=== PATIENT | male | born 1965 | race Caucasian/White ===

== ENCOUNTER 2016-09-12 17:16 | Inpatient (IN) | payer OTHER ==
[~2016-09-12] VITALS: Ht 162.6 cm; Wt 73.3 kg
[2016-09-12 18:05] LABS: MEAN CORPUSCULAR HEMOGLOBIN 29.4 pg (27.0-33.0); MEAN CORPUSCULAR HGB CONC 33.5 g/dl (32.0-36.5); MEAN CORPUSCULAR VOLUME 87.7 fl (80.0-96.0); RED CELL DISTRIBUTION WIDTH 12.6 % (11.5-14.5); WHITE BLOOD COUNT 6.8 K/mm3 (4.0-10.0)
[2016-09-12 18:17] LABS: CONTROL LINE INT CTR LINE PRESENT; METHADONE URINE NEGATIVE (NEGATIVE); TRICYCLIC ANTIDEPRESS URINE NEGATIVE (NEGATIVE)
[2016-09-12 18:30] LABS: ALBUMIN 4.3 GM/DL (3.2-5.2); ALBUMIN/GLOBULIN RATIO 1.26 (1.00-1.93); ALKALINE PHOSPHATASE 101 U/L (45-117); ALT/SGPT 31 U/L (12-78); ANION GAP 11 MEQ/L (8-16); AST/SGOT 22 U/L (15-37); BILIRUBIN,DIRECT < 0.1 MG/DL (0.0-0.2); BILIRUBIN,TOTAL 0.2 MG/DL (0.2-1.0); BLOOD UREA NITROGEN 14 MG/DL (7-18); CALCIUM LEVEL 8.6 MG/DL (8.5-10.1); CARBON DIOXIDE LEVEL 25 MEQ/L (21-32); CHLORIDE LEVEL 104 MEQ/L (98-107); CREATININE FOR GFR 0.87 MG/DL (0.70-1.30); GLOMERULAR FILTRATION RATE > 60.0 (>56); GLUCOSE, FASTING 118 MG/DL (70-105); POTASSIUM SERUM 3.9 MEQ/L (3.5-5.1); SODIUM LEVEL 140 MEQ/L (136-145); TOTAL PROTEIN 7.7 GM/DL (6.4-8.2)
[2016-09-12] MEDS ORDERED: metFORMIN (GLUCOPHAGE) 500 MG TAB As Ordered ONE (20:48)
[2016-09-12] MEDS ORDERED: GABAPENTIN 300 MG CAP As Ordered ONE (20:49)
[2016-09-13] MEDS ORDERED: NAPROXEN 250 MG TAB As Ordered ONE (08:58)
[2016-09-13] MEDS ORDERED: PANTOPRAZOLE 40MG TAB (PROTONIX) As Ordered ONE (08:58)
[2016-09-13] MEDS ORDERED: GABAPENTIN 300 MG CAP As Ordered ONE ×2 (08:59→16:10)
[2016-09-13] MEDS ORDERED: GLIMEPIRIDE 2 MG TAB PO ONE (09:30)
[2016-09-13] MEDS ORDERED: IRBESARTAN 150 MG TAB PO ONE (13:45)
[2016-09-13] MEDS ORDERED: hydroCHLOROthiazide 12.5 MG CAPSULE As Ordered ONE (13:58)
[2016-09-13] MEDS ORDERED: ATOR1TAB21 PO (14:16)
[2016-09-13] MEDS ORDERED: PANT40TA2 PO (14:16)
[2016-09-13] MEDS ORDERED: GLIM2TA PO (14:16)
[2016-09-13] MEDS ORDERED: METF-700 PO (14:16)
[2016-09-13] MEDS ORDERED: GABA300C3 PO (14:16)
[2016-09-13] MEDS ORDERED: NAPR1TAB86 PO (14:16)
[2016-09-13] MEDS ORDERED: IRBE150T14 PO (14:16)
[2016-09-13 16:30] VITALS: BP 137/87
--- NOTE | 2016-09-13 17:07 | EDDOCDS ---
Physician Documentation [facility] Name: Stan Zaldivar Age: 51 yrs Sex: Male : 1965 Arrival Date: 09/12/2016 Time: 17:16 Bed BHU3 Private MD: Disposition: 09/13 13:25 Critical Care: Critical care not applicable. pc Disposition: 09/13/16 13:28 Hospitalization ordered by Merly Vázquez for Inpatient Admission. Preliminary diagnosis are Alcohol abuse, Major depressive disorder, recurrent, moderate, Suicidal ideations, Essential (primary) hypertension. - Bed requested for Admit. - Status is Inpatient Admission. dpm - Condition is Stable. - Problem is new. - Symptoms are unchanged. Historical: - Allergies: No known drug Allergies; - Home Meds: 1. gabapentin 300 mg Oral cap 1 cap 3 times per day 2. metformin 500 mg ER 4 tabs daily in the evening with food Oral tab 1 tab 2 times per day 3. naproxen 500 mg oral tab 1 tab 2 times per day 4. pantoprazole 40 mg oral TbEC 1 tab once daily 5. glimepiride 2 mg Oral tab DAILY IN THE MORNING 6. atorvastatin 20 mg oral tab once daily 7. all meds verified with [facility] 09/13 0800 8. irbesartan-hydrochlorothiazide 150-12.5 mg oral tab once daily - PMHx: High Cholesterol; Hypertension; Diabetes - NIDDM: controlled; - PSHx: Hernia repair- Right inguinal; Knee surgery- Left; - Social history: Smoking status: Patient uses tobacco products, heavy tobacco smoker. Patient uses alcohol No barriers to communication noted, The patient speaks fluent Serbian, Speaks appropriately for age, Preferred Language: Serbian. - Family history: Not pertinent. - : The pt / caregiver states he / she is not on anticoagulants. Unable to Verify Home Med List with the patient / caregiver. - Exposure Risk Screening:: None identified. Vital Signs: 09/12 17:52 BP 112 / 63; Pulse 103; Resp 18; Temp 97.8; Pulse Ox 97% ; Pain 0/10; hs1 17:55 Weight 70.31 kg / 155.01 lbs; Height 5 ft. 3 in. (160.02 cm); hs1 21:35 BP 136 / 85; Pulse 97; Resp 18; Temp 97.8(T); Pulse Ox 98% on R/A; Pain 0/10; rw1 09/13 06:17 BP 139 / 78; Pulse 73; Resp 16; Temp 97.2(TE); Pulse Ox 98% on R/A; Pain 0/10; rw1 13:13 BP 171 / 103; Pulse 83; Resp 18; Temp 97.2(O); Pulse Ox 99% on R/A; dpm 13:34 BP 159 / 100; mk4 14:52 BP 159 / 106; Pulse 72; mk4 15:17 BP 156 / 101; Pulse 72; Resp 18; mk4 16:55 BP 137 / 87; Pulse 80; Resp 16; Temp 97.1(T); Pulse Ox 98% on R/A; dpm 09/12 17:55 Body Mass Index 27.46 (70.31 kg, 160.02 cm) hs1 MDM: 09/12 17:19 Consult PFS/PSA/Sales Training Manager ordered. sd1 17:19 Consult PFS/PSA/Sales Training Manager: Patient's case requires discussion with on-call sd1 Psychiatrist ordered. 17:19 PSA/PFS to call Nursing [employer] Engagement Planning Operator, to enter patient data on [place] Safe [place] if patient sd1 involuntarily admitted or transferred for SI or HI ordered. 17:19 Confirm accurate psychiatric medication list and times of last dosage ordered. sd1 17:19 Detain Pt Until Medically/PFS Cleared ordered. sd1 17:20 Acetaminophen Level Ordered. EDMS 17:20 Basic Metabolic Profile Ordered. EDMS 17:20 Complete Blood Count Ordered. EDMS 17:20 Drug Eval Toxicology ED Only Ordered. EDMS 17:20 Ethyl Alcohol (ethanol) Ordered. EDMS 17:20 Liver Profile Ordered. EDMS 17:20 Salicylate Level Ordered. EDMS 17:20 Thyroid Stimulating Hormone Ordered. EDMS 18:34 Acetaminophen Level Reviewed. sd1 18:34 Basic Metabolic Profile Reviewed. sd1 18:34 Ethyl Alcohol (ethanol) Reviewed. sd1 18:34 Salicylate Level Reviewed. sd1 18:34 Complete Blood Count Reviewed. sd1 18:34 Drug Eval Toxicology ED Only Reviewed. sd1 18:34 Liver Profile Reviewed. sd1 18:34 Thyroid Stimulating Hormone Reviewed. sd1 18:44 Financial registration complete. zo 18:45 [facility] Payment Agreement was scanned into [email or web address] and attached to record. zo 20:46 metFORMIN 500 mg PO once ordered. rw1 20:46 Gabapentin 300 mg PO once ordered. rw1 09/13 00:05 Consult PFS/PSA/Sales Training Manager complete. jmb 00:05 Consult PFS/PSA/Sales Training Manager: Patient's case requires discussion with on-call jmb Psychiatrist complete. 00:05 PSA/PFS to call Nursing [employer] Engagement Planning Operator, to enter patient data [place] Safe [place] if patient jmb involuntarily admitted or transferred for SI or HI complete. 05:48 CONSISTENT CARBS-PLASTIC JUAREZ+DIET ordered. EDMS 06:59 Awaiting: The patient is awaiting psychiatric admission or transfer. All labs and pc investigations have been reviewed. The vital signs have been reviewed. The patient remains medically cleared for disposition. 08:48 Gabapentin 300 mg PO once ordered. mk4 08:48 Naproxen 500 mg PO once; administer with food or milk ordered. mk4 08:48 Pantoprazole 40 mg PO once ordered. mk4 08:48 Glimepiride 2 mg PO once ordered. mk4 11:47 CONSISTENT CARBS-PLASTIC JUAREZ+DIET ordered. EDMS 13:05 Admit to [facility]: ordered. EDMS 13:06 E Legal paperwork was scanned into [email or web address] and attached to record. jfb 13:25 [place] Safe Act reporting: The patient poses a significant risk to self or others, and pc PSA/PFS has notified the Nursing [employer] Engagement Planning Operator and he/she will complete the required data processing systems project planner. The patient has been re-examined and re-evaluated. There is no appreciated change of the patient's symptoms at this time. Disposition: The historical points, examination findings, and any diagnostic results supporting the provided diagnosis, were discussed with the patient or legal guardian. The need for further work-up and/or treatment in the hospital was explained. 13:34 Irbesartan 150 mg PO once ordered. pc 13:34 Hydrochlorothiazide 12.5 mg PO once ordered. pc 15:57 CONSISTENT CARBS-PLASTIC JUAREZ+DIET ordered. EDMS 16:08 Gabapentin 300 mg PO once ordered. mk4 Administered Medications: 09/12 20:55 Drug: metFORMIN 500 mg [metformin 500 mg tablet (1 tabs)] Route: PO; rw09/13 00:27 Follow up: Response: No Adverse Reaction rw1 02/22 20:55 Drug: Gabapentin 300 mg [gabapentin 100 mg capsule (3 caps)] Route: PO; 09/13 00:27 Follow up: Response: No Adverse Reaction 1 09:07 Drug: Gabapentin 300 mg [gabapentin 100 mg capsule (3 caps)] Route: PO; 4 09:07 Drug: Naproxen 500 mg [naproxen 250 mg tablet (2 tabs)] Route: PO; 4 09:07 Drug: Pantoprazole 40 mg [pantoprazole 40 mg tablet,delayed release (1 tabs)] Route: PO;mk4 10:22 Drug: Glimepiride 2 mg [glimepiride 2 mg tablet (1 tabs)] Route: PO; mk4 13:55 Drug: Irbesartan 150 mg [irbesartan 150 mg tablet (1 tabs)] Route: PO; mk4 13:55 Drug: Hydrochlorothiazide 12.5 mg Route: PO; 4 16:19 Drug: Gabapentin 300 mg [gabapentin 100 mg capsule (3 caps)] Route: PO; 4 Signatures: Dispatcher [employer] EDRick Ruiz MD MD pc Delaney-Rowland, Sarah, MD MD sd1 Derick Baron,MECHANICAL TEST ENGINEER MECHANICAL TEST ENGINEER rw1 Anila Rubin Julie PSA PSA Svetlana Horton RN RN hs1 Bartolome Deleon dpm, Joshua, RN RN Milady Ricardo RN RN mk4 Nikole Bhatt MD MD The chart was reviewed and I authenticate all verbal orders and agree with the evaluation and treatment provided.Corrections: (The following items were deleted from the chart) 08:09/12 17:47 Home Meds: metformin 500 mg Oral tab 1 tab 2 times per day; [place] [id number] 09/13 08:09/12 17:47 Home Meds: glipizide Oral; [place] [id number] 09/13 08:09/12 17:47 Home Meds: naproxen 250 mg Oral tab 1 tab every 6 hours; [place] [id number] 09/13 08:09/12 17:47 Home Meds: simvastatin 10 mg Oral tab 1 tab once daily; [place] [id number] 09/13 08:09/12 17:47 Home Meds: pantoprazole 20 mg oral TbEC 1 tab once daily; hs1 mk4 Attachments: 18:45 [facility] Agreement [facility]
--- NOTE | 2016-09-13 17:07 | EDDOCDS ---
Nurse's Notes [facility] Name: Stan Zaldivar Age: 51 yrs Sex: Male : 1965 Arrival Date: 09/12/2016 Time: 17:16 Bed [facility] Private MD: Diagnosis: Alcohol abuse;Major depressive disorder, recurrent, moderate;Suicidal ideations;Essential (primary) hypertension Presentation: 09/12 17:40 Presenting complaint: police state that he pulled into work and was swerving vehicle hs1 and stumbling around parking lot. Arrested for DUI and stated to police that he was going to loose everything and that he was going to blow his brains out and that (pointing to officer) you are going to get the call tomorrow. Patient eluded that he was going to loose his sons and job and be on welfare. Pt very emotional. Mental Health Triage Level: Level 2: The patient was brought to the ED for evaluation because of a legal pickup order. Adult Sepsis Screening: The patient does not have new or worsening altered mentation. Patient's respiratory rate is less than 22. Systolic blood pressure is greater than 100. Patient has a qSOFA score of 0- Negative Sepsis Screen. Suicide/Homicide risk assessment- The patient admits to and/or has been reported to be having suicidal ideations. The patient reports that he/she has not been admitted to an inpatient mental health facility in the last 30 days. The patient reports that he/she has a recent or current history of substance abuse. The patient reports that he/she has no prior history of suicide attempt and/or organized plan. The patient reports that he/she has experienced a significant life altering event in the last 30 days. The patient reports that he/she has adequate social support. The patient reports he/she has no significant chronic medical condition(s). Status: Patient is not a emergency medical service manager or dependent. Transition of care: patient was not received from another setting of care. 17:40 Acuity: NATALIO Level 3 hs1 17:40 Method Of Arrival: Police Car hs1 Triage Assessment: 17:48 General: Appears in no apparent distress, Behavior is crying. Pain: Denies pain. HIV hs1 screening NA for this visit. Neurological: Level of Consciousness is awake, alert. Respiratory: Airway is patent Respiratory effort is even, unlabored, Respiratory pattern is regular, symmetrical. GI: No deficits noted. : Urine is clear. Musculoskeletal: No deficits noted. Historical: - Allergies: No known drug Allergies; - Home Meds: 1. gabapentin 300 mg Oral cap 1 cap 3 times per day 2. metformin 500 mg ER 4 tabs daily in the evening with food Oral tab 1 tab 2 times per day 3. naproxen 500 mg oral tab 1 tab 2 times per day 4. pantoprazole 40 mg oral TbEC 1 tab once daily 5. glimepiride 2 mg Oral tab DAILY IN THE MORNING 6. atorvastatin 20 mg oral tab once daily 7. all meds verified with [facility] 09/13 0800 8. irbesartan-hydrochlorothiazide 150-12.5 mg oral tab once daily - PMHx: High Cholesterol; Hypertension; Diabetes - NIDDM: controlled; - PSHx: Hernia repair- Right inguinal; Knee surgery- Left; - Social history: Smoking status: Patient uses tobacco products, heavy tobacco smoker. Patient uses alcohol No barriers to communication noted, The patient speaks fluent Algerian, Speaks appropriately for age, Preferred Language: Algerian. - Family history: Not pertinent. - : The pt / caregiver states he / she is not on anticoagulants. Unable to Verify Home Med List with the patient / caregiver. - Exposure Risk Screening:: None identified. Screenin/23 13:21 Screening information is obtained from the patient. Fall risk: No risks identified. mk4 Assistance ADL's: requires no assistance with activities of daily living. Abuse/DV Screen: The patient / caregiver reports he/she is: not in a situation that causes fear, pain or injury. Nutritional screening: No deficits noted. Advance Directives: Currently, there is no health care proxy. There is no active DNR order. There is no living will. There is no Power of Offal Baler. Advance directive information has not previously been placed in an [facility] medical record. home support is adequate. Assessment: 09/12 17:48 General: see triage assessment. rw1 19:30 General: Appears in no apparent distress, comfortable, Behavior is appropriate for age, rw1 cooperative, pleasant. Pain: Denies pain. Neurological: Level of Consciousness is awake, alert, obeys commands, Oriented to person, place, time. Respiratory: Airway is patent Respiratory effort is even, unlabored. Derm: Skin is pink, warm & dry. normal. 20:37 Reassessment: Patient appears in no apparent distress at this time. awake resting on rw1 stretcher, safety maintained will monitor.. 21:35 Reassessment: Patient appears in no apparent distress at this time. Patient denies pain rw1 at this time. awake resting on stretcher, safety maintained will monitor.. 22:30 General: Appears in no apparent distress, comfortable, Behavior is resting quietly on rw1 stretcher with eyes closed, safety maintained. Respiratory: Airway is patent Respiratory effort is even, unlabored. Derm: Skin is pink, warm & dry. normal. 23:34 Reassessment: Patient appears in no apparent distress at this time. awake resting on rw1 stretcher, safety maintained will monitor.. 09/13 00:26 Reassessment: Patient appears in no apparent distress at this time. awake resting on rw1 stretcher, safety maintained will monitor.. 01:25 General: Appears in no apparent distress, comfortable, Behavior is resting quietly on rw1 stretcher with eyes closed, safety maintained . Respiratory: Airway is patent Respiratory effort is even, unlabored. Derm: Skin is pink, warm & dry. normal. 02:32 Reassessment: Patient appears in no apparent distress at this time. resting quietly on rw1 stretcher with eyes closed, safety maintained will monitor.. 03:33 Reassessment: Patient appears in no apparent distress at this time. resting quietly on rw1 stretcher, safety maintained will monitor.. 04:34 General: Appears in no apparent distress, comfortable, Behavior is resting quietly on rw1 stretcher with eyes closed, safety maintained. Respiratory: Airway is patent Respiratory effort is even, unlabored. Derm: Skin is pink, warm & dry. normal. 05:30 Reassessment: Patient appears in no apparent distress at this time. continues resting rw1 quietly on stretcher, safety maintained will monitor.. 06:17 Reassessment: Patient appears in no apparent distress at this time. Patient denies pain rw1 at this time. resting quietly on stretcher with eyes closed, safety maintained . 07:30 General: Appears in no apparent distress, comfortable, Behavior is appropriate for age, js13 cooperative. Neurological: Level of Consciousness is awake, alert. Respiratory: Airway is patent Respiratory effort is even, unlabored. Derm: Skin is pink, warm & dry. 08:30 General: Appears in no apparent distress, comfortable, Behavior is cooperative. mk4 Neurological: Level of Consciousness is awake, alert, Oriented to person, place, time. 09:45 Reassessment: Patient denies pain at this time. Neurological: Level of Consciousness is mk4 awake, alert, Oriented to person, place, time. 10:45 General: Appears in no apparent distress, comfortable, Behavior is cooperative. mk4 Respiratory: No deficits noted. Airway is patent Respiratory effort is even, unlabored, Respiratory pattern is regular. 12:00 General: Appears in no apparent distress, comfortable, Behavior is cooperative. mk4 Respiratory: Airway is patent Respiratory effort is even, unlabored, Respiratory pattern is regular. 13:18 General: Appears in no apparent distress, comfortable, Behavior is cooperative. mk4 Neurological: Level of Consciousness is awake, alert, obeys commands, Oriented to person, place, time. 13:49 General: Appears distressed, pt anxious, B/P elevated and reported to Dr Ware. mk4 14:40 General: Appears in no apparent distress, comfortable, Behavior is cooperative, family mk4 visitors in room , pt pleasant , in good spirits. 15:50 General: Appears in no apparent distress, Behavior is cooperative. mk4 16:59 General: Appears in no apparent distress, comfortable, Behavior is appropriate for age, mk4 cooperative, pleasant, admission nurse in room with pt . Pain: Denies pain. Mental Health Eval: 09/12 23:49 Status: The patient is not a emergency medical service manager or dependent. [facility] Behavioral Health: The patient is not an established patient of [facility] Behavioral Health. Referral Information: Evaluation referral is generated by a police agency: [place] [employer], Officer Padmini. The patient was referred for evaluation because Suicidal Ideation/statement. Subjective: The patients chief complaint is Patient reports that he was brought in by police tonight because he reported to saying he wanting to kill himself. . Delusions are denied. Patient's mood is appropriate. Hallucinations are denied. Patient reports that he stated he wanted to kill himself after the police stopped him at work and gave him a DWI. Mental Health history: no relevant mental health problems or treatments. Mental Health Admissions: None. Current Outpatient Mental Health Services: None. Current living environment is The patient currently lives with his / her significant other, Mari Love. Patient presents to Emergency Department with the following symptoms within the past 2 weeks: alcohol abuse and patient reported suicidal ideation while under the influence of alcohol. Substance abuse: Patient uses beer, Patient reports drinking beer several times during the week without full disclosure of how much weekly. Last use was 6 hours ago. Patient does not have a history of DTs. Mental status exam: Patients appearance is appropriate, Patient's behavior is cooperative, Speech is normal. Affect is flat. Mood is appropriate. Hallucinations are denied. Appetite is normal. Memory is fair. Energy level is normal. Content of thought is normal. Thought process is intact. Cognitive level is oriented to person, place, time and situation Patient's insight is good. Judgement is fair. Rapport with interviewer is good. Suicidal Ideation is present with no specific plan. Homicidal ideation is denied. Disposition: Medically cleared for disposition by Nikole Bhatt MD Psychiatric Consult is performed by phone with Dr Merly Vázquez. [facility] Admission Criteria: The patient is experiencing suicidal ideation. Narrative: Spoke with Dr. Cevallos who feels that patient should be admitted for evaluation and further treatment. 09/13 07:21 Legal Status: Patient's legal status will be Emergency admission: 9.39. [place] Safe Act:. 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 11:06 Patient presents to Emergency Department with the following symptoms within the past 2 weeks: alcohol abuse, depressed mood, poor impulse control, suicidal ideation with no plan. [facility] Admission Criteria: The patient requires continuous observation and/or control to protect self, others or property. The patient's care requires a multi-modal treatment plan under close supervision and coordination due to the complexity and severity of the patient's symptoms. The patient requires administration and monitoring of psychoactive medications by skilled medical providers due to the side effects of the psychoactive medications or significant dosage adjustments. 14:44 Insurance Pre-Certification:. 14:52 Insurance Pre-Certification: approved by: approved for 4 days from 09/13-09/16 with ac concurrent review with [facility] Auth. # [place] [id number]. The phone # is [phone], ext. [phone]. Vital Signs: 09/12 17:52 BP 112 / 63; Pulse 103; Resp 18; Temp 97.8; Pulse Ox 97% ; Pain 0/10; hs1 17:55 Weight 70.31 kg; Height 5 ft. 3 in. (160.02 cm); hs1 21:35 BP 136 / 85; Pulse 97; Resp 18; Temp 97.8(T); Pulse Ox 98% on R/A; Pain 0/10; rw1 09/13 06:17 BP 139 / 78; Pulse 73; Resp 16; Temp 97.2(TE); Pulse Ox 98% on R/A; Pain 0/10; rw1 13:13 BP 171 / 103; Pulse 83; Resp 18; Temp 97.2(O); Pulse Ox 99% on R/A; dpm 13:34 BP 159 / 100; mk4 14:52 BP 159 / 106; Pulse 72; mk4 15:17 BP 156 / 101; Pulse 72; Resp 18; mk4 16:55 BP 137 / 87; Pulse 80; Resp 16; Temp 97.1(T); Pulse Ox 98% on R/A; dpm 09/12 17:55 Body Mass Index 27.46 (70.31 kg, 160.02 cm) hs1 Vitals: 09/12 17:49 Log In time N/A- police car arrival. hs1 ED Course: 17:18 Patient visited by Anila Rubin. zo 17:18 Heather Mon MD is Attending Physician. sd1 17:18 Patient moved to [facility] zo 17:18 Patient moved to [facility] zo 17:19 Patient visited by Heather Mon MD. sd1 17:35 Drug Eval Toxicology ED Only Sent. jc4 17:44 Triage Initiated hs1 17:45 Psych Safety Check: Location: Psych Room. Visual Assessment: Cooperative, Agitated. jrd 17:45 Property removed, inventory done, secured in belongings bag- placed in locked locker. jrd Placed in in ED safe. 17:48 Acetaminophen Level Sent. hs1 17:48 Basic Metabolic Profile Sent. hs1 17:48 Complete Blood Count Sent. hs1 17:48 Ethyl Alcohol (ethanol) Sent. hs1 17:48 Liver Profile Sent. hs1 17:48 Salicylate Level Sent. hs1 17:48 Thyroid Stimulating Hormone Sent. hs1 17:49 No IV's were initiated during this patient's visit. hs1 17:55 Patient visited by Svetlana Gant, RONALD. hs1 18:00 Psych Safety Check: Location: Psych Room. Visual Assessment: Cooperative, Agitated. jrd 18:15 Psych Safety Check: Location: Psych Room. Visual Assessment: Cooperative. jrd 18:23 Patient visited by Domenic Ramirez PCA. jrd 18:45 [facility] Payment Agreement was scanned into [employer] and attached to record. zo 18:59 Patient visited by Porfirio Bermudez. tr 19:03 Leann Yanez,RONALD is Primary Nurse. cf2 19:03 Patient visited by Leann Yanez,RONALD. cf2 19:14 Patient visited by Porfirio Bermudez. tr 19:30 Patient visited by Porfirio Bermudez. tr 19:42 Patient visited by Porfirio Bermudez. tr 20:02 Patient visited by Porfirio Bermudez. tr 20:15 Patient visited by Porfirio Bermudez. tr 20:29 Patient visited by Porfirio Bermudez. tr 20:54 Attending Physician role handed off by Heather Mon MD fg 20:54 Nikole Bhatt MD is Attending Physician. fg 20:57 Patient visited by Porfirio Bermudez. tr 21:08 Patient moved to OBSERVATION fg 21:16 Patient visited by Porfirio Bermudez. tr 21:44 Patient visited by Porfirio Bermudez. tr 22:18 Patient visited by Porfirio Bermudez. tr 22:31 Patient visited by Derick Baron LPN. rw1 22:33 Patient visited by Porfirio Bermudez. tr 22:45 Patient visited by Porfirio Bermudez. tr 23:18 Patient visited by Porfirio Bermudez. tr 23:29 Patient visited by Porfirio Bermudez. tr 23:42 Patient visited by Tim. Lara tr 09/13 00:05 Merly Vázquez is Hospitalizing Provider. fg 00:16 Patient visited by Porfirio Bermudez. tr 00:30 Patient visited by Tim. Lara tr 00:44 Patient visited by Porfirio Bermudez. tr 00:58 Patient visited by Porfirio Bermudez. tr 01:16 Patient visited by Porfirio Bermudez. tr 01:28 Patient visited by Bermudez, Porfirio. tr 01:47 Patient visited by [facility]. tr 02:01 Patient visited by [facility]. tr 02:16 Patient visited by [facility]. tr 02:49 Patient visited by [facility]. tr 03:05 Patient visited by [facility]. tr 03:19 Patient visited by [facility]. tr 03:57 Patient visited by [facility]. tr 03:59 Patient visited by [facility]. tr 04:19 Patient visited by [facility]. tr 05:00 Patient visited by [facility]. tr 05:20 Patient visited by [facility]. tr 05:31 Patient visited by [facility]. tr 05:59 Patient visited by [facility]. tr 06:15 Patient visited by [facility]. tr 06:29 Patient visited by [facility]. tr 06:43 Patient visited by [facility]. tr 06:57 Patient visited by [facility]. tr 06:59 Attending Physician role handed off by Nikole Bhatt MD pc 06:59 Rick Ware MD is Attending Physician. pc 07:24 Patient visited by Bartolome Deleon. dpm 07:37 Patient visited by Bartolome Deleon. dpm 07:45 Patient visited by Bartolome Deleon. dpm 08:01 Patient visited by Bartolome Deleon. dpm 08:21 Patient visited by Bartolome Deleon. dpm 08:40 Patient visited by Bartolome Deleon. dpm 08:56 Patient visited by Bartolome Deleon. dpm 09:13 Patient visited by Bartolome Deleon. dpm 09:32 Patient visited by Bartolome Deleon. dpm 09:51 Patient visited by Bartolome Deleon. dpm 10:00 Patient visited by Bartolome Deleon. dpm 10:15 Patient visited by Bartolome Deleon. dpm 10:32 Patient visited by Bartolome Deleon. dpm 11:03 Patient visited by Bartolome Deleon. dpm 11:26 Patient visited by Bartolome Deleon. dpm 11:51 Patient visited by Bartolome Deleon. dpm 12:33 Patient visited by Bartolome Deleon. dpm 12:50 Patient visited by Bartolome Deleon. dpm 13:06 E Legal paperwork was scanned into [employer] and attached to record. jfb 13:13 Patient visited by Bartolome Deleon. dpm 13:21 The patient / caregiver is instructed regarding the plan of care and ED course. mk4 13:21 No procedures done that require assistance. mk4 13:25 Patient moved to [facility] pc 13:28 Merly Vázquez is Hospitalizing Provider. pc 13:30 Patient visited by Bartolome Deleon. dpm 13:46 Patient visited by Bartolome Deleon. dpm 14:03 Patient visited by Bartolome Deleon. dpm 14:19 Patient visited by Bartolome Deleon. dpm 15:15 Patient visited by Bartolome Deleon. dpm 15:41 Patient visited by Bartolome Deleon. dpm 15:55 Patient visited by Bartolome Deleon. dpm 16:01 Patient visited by Bartolome Deleon. dpm 16:24 Patient visited by Bartolome Deleon. dpm 16:49 Patient visited by Bartolome Deleon. dpm Administered Medications: 09/12 20:55 Drug: metFORMIN 500 mg [metformin 500 mg tablet (1 tabs)] Route: PO; 09/13 00:27 Follow up: Response: No Adverse Reaction [facility] 09/12 20:55 Drug: Gabapentin 300 mg [gabapentin 100 mg capsule (3 caps)] Route: PO; 09/13 00:27 Follow up: Response: No Adverse Reaction rw1 09:07 Drug: Gabapentin 300 mg [gabapentin 100 mg capsule (3 caps)] Route: PO; mk4 09:07 Drug: Naproxen 500 mg [naproxen 250 mg tablet (2 tabs)] Route: PO; mk4 09:07 Drug: Pantoprazole 40 mg [pantoprazole 40 mg tablet,delayed release (1 tabs)] Route: PO;mk4 10:22 Drug: Glimepiride 2 mg [glimepiride 2 mg tablet (1 tabs)] Route: PO; mk4 13:55 Drug: Irbesartan 150 mg [irbesartan 150 mg tablet (1 tabs)] Route: PO; mk4 13:55 Drug: Hydrochlorothiazide 12.5 mg Route: PO; mk4 16:19 Drug: Gabapentin 300 mg [gabapentin 100 mg capsule (3 caps)] Route: PO; mk4 Attachments: 09/13 13:06 [facility] Legal paperwork jfb Order Results: Lab Order: Acetaminophen Level; SPEC'M 09/12/16 17:32 Test: ACETAMINOPHEN LEVEL; Value: < 2.0; Range: 10.0-30.0; Abnormal: Below low normal; Units: UG/ML; Status: F Lab Order: Basic Metabolic Profile; SPEC'M 09/12/16 17:32 Test: GLUCOSE, FASTING; Value: 118; Range: 70-105; Abnormal: Above high normal; Units: MG/DL; Status: F Test: BLOOD UREA NITROGEN; Value: 14; Range: 7-18; Units: MG/DL; Status: F Test: CREATININE FOR GFR; Value: 0.87; Range: 0.70-1.30; Units: MG/DL; Status: F Test: GLOMERULAR FILTRATION RATE; Value: > 60.0; Range: >56; Status: F Test: SODIUM LEVEL; Value: 140; Range: 136-145; Units: MEQ/L; Status: F Test: POTASSIUM SERUM; Value: 3.9; Range: 3.5-5.1; Units: MEQ/L; Status: F Test: CHLORIDE LEVEL; Value: 104; Range: 98-107; Units: MEQ/L; Status: F Test: CARBON DIOXIDE LEVEL; Value: 25; Range: 21-32; Units: MEQ/L; Status: F Test: ANION GAP; Value: 11; Range: 8-16; Units: MEQ/L; Status: F Test: CALCIUM LEVEL; Value: 8.6; Range: 8.5-10.1; Units: MG/DL; Status: F Test Note: ; Units are mL/min/1.73 m2 Chronic Kidney Disease Staging per NKF: Stage I & II GFR >=60 Normal to Mildly Decreased Stage III GFR 30-59 Moderately Decreased Stage IV GFR 15-29 Severely Decreased Stage V GFR <15 Very Little GFR Left ESRD GFR <15 on UTILITY ASSEMBLER Lab Order: Complete Blood Count; SPEC'M 09/12/16 17:32 Test: WHITE BLOOD COUNT; Value: 6.8; Range: 4.0-10.0; Units: K/mm3; Status: F Test: RED BLOOD COUNT; Value: 5.06; Range: 4.30-6.10; Units: M/mm3; Status: F Test: HEMOGLOBIN; Value: 14.9; Range: 14.0-18.0; Units: g/dl; Status: F Test: HEMATOCRIT; Value: 44.3; Range: 42.0-52.0; Units: %; Status: F Test: MEAN CORPUSCULAR VOLUME; Value: 87.7; Range: 80.0-96.0; Units: fl; Status: F Test: MEAN CORPUSCULAR HEMOGLOBIN; Value: 29.4; Range: 27.0-33.0; Units: pg; Status: F Test: MEAN CORPUSCULAR HGB CONC; Value: 33.5; Range: 32.0-36.5; Units: g/dl; Status: F Test: RED CELL DISTRIBUTION WIDTH; Value: 12.6; Range: 11.5-14.5; Units: %; Status: F Test: PLATELET COUNT, AUTOMATED; Value: 309; Range: 150-450; Units: k/mm3; Status: F Lab Order: Drug Eval Toxicology ED Only; SPEC'M 09/12/16 17:31 Test: AMPHETAMINES LEVEL URINE; Value: NEGATIVE; Range: NEGATIVE; Status: F Test: BARBITURATES URINE; Value: NEGATIVE; Range: NEGATIVE; Status: F Test: BENZODIAZEPINES URINE; Value: NEGATIVE; Range: NEGATIVE; Status: F Test: CANNABINOIDS URINE; Value: NEGATIVE; Range: NEGATIVE; Status: F Test: COCAINE METABOLITE URINE; Value: NEGATIVE; Range: NEGATIVE; Status: F Test: METHADONE URINE; Value: NEGATIVE; Range: NEGATIVE; Status: F Test: OPIATES URINE; Value: NEGATIVE; Range: NEGATIVE; Status: F Test: TRICYCLIC ANTIDEPRESS URINE; Value: NEGATIVE; Range: NEGATIVE; Status: F Test Note: ; ALL PRESUMPTIVE POSITIVE FINDINGS ARE UNCONFIRMED NORMAL VALUES THRESHOLD IN NG/ML AMPHETAMINES 1000 METHAMPHETAMINES 1000 BARBITURATES 300 BENZODIAZEPINES 300 CANNABINOIDS (THC) 50 COCAINE METABOLITE 300 METHADONE 300 OPIATES 300 PHENCYCLIDINE 25 TRICYCLIC ANTIDEPRESSANTS 1000 RESULTS ARE FOR MEDICAL PURPOSES ONLY. ALL URINE SPECIMENS WILL BE SAVED FOR 3 DAYS. IF CONFIRMATION OF A PRESUMPTIVE POSTIVE SCREEN RESULT IS DESIRED, CALL CHEMISTRY ([phone]) AND REQUEST URINE TO BE SENT TO REFERENCE LAB. FOR A LIST OF CLOSELY RELATED COMPOUNDS PLEASE CALL THE LAB. Lab Order: Ethyl Alcohol (ethanol); [facility] 09/12/16 17:32 Test: ETHYL ALCOHOL (ETHANOL); Value: 0.179; Range: 0.000-0.010; Abnormal: Above high normal; Units: %; Status: F Lab Order: Liver Profile; [facility] 09/12/16 17:32 Test: AST/SGOT; Value: 22; Range: 15-37; Units: U/L; Status: F Test: ALT/SGPT; Value: 31; Range: 12-78; Units: U/L; Status: F Test: ALKALINE PHOSPHATASE; Value: 101; Range: 45-117; Units: U/L; Status: F Test: BILIRUBIN,TOTAL; Value: 0.2; Range: 0.2-1.0; Units: MG/DL; Status: F Test: BILIRUBIN,DIRECT; Value: < 0.1; Range: 0.0-0.2; Units: MG/DL; Status: F Test: TOTAL PROTEIN; Value: 7.7; Range: 6.4-8.2; Units: GM/DL; Status: F Test: ALBUMIN; Value: 4.3; Range: 3.2-5.2; Units: GM/DL; Status: F Test: ALBUMIN/GLOBULIN RATIO; Value: 1.26; Range: 1.00-1.93; Status: F Lab Order: Salicylate Level; SPEC' 09/12/16 17:32 Test: SALICYLATE LEVEL; Value: < 1.7; Range: 5.0-30.0; Abnormal: Below low normal; Units: MG/DL; Status: F Lab Order: Thyroid Stimulating Hormone; SPEC'M 09/12/16 17:32 Test: THYROID STIMULATING HORMONE; Value: 1.390; Range: 0.358-3.740; Units: uIU/ML; Status: F Outcome: 00:05 Decision to Hospitalize by Provider. fg 13:21 Discharge Assessment: Patient awake, alert and oriented x 3. No cognitive and/or mk4 functional deficits noted. Patient verbalized understanding of disposition instructions. Patient awake and alert. patient administered narcotics - no. Admitted to Psych accompanied by tech, via wheelchair, with chart. The following High Risk Discharge criteria are identified: None. Condition: good Condition: stable. No special radiology studies were completed. Admission hand-off: Report Faxed Fax receipt verified by [facility]. 13:28 Decision to Hospitalize by Provider. 17:06 Patient left the ED. dpm Signatures: Rick Ware MD MD pc Delaney-Rowland, Sarah, MD MD sd1 Antonio Irving, PSA PSA miladis Bermudez, Derick Santo,AIR CONDITIONING COIL ASSEMBLER AIR CONDITIONING COIL ASSEMBLER rw1 Anila Rubin Julie, PSA PSA Svetlana Horton, RN RN hs1 Otilia Vásquez, RN RN jc4 Otilia Diego,RN RN js13 Bartolome Deleonm Flash Campos,RN RN Milady Ricardo, RN RN mk4 Domenic Ramirez, TIARRA ATHLETE MANAGER Nikole Stein MD MD fg Familetti-Gonzalez, Christina,RN RN cf2 Corrections: (The following items were deleted from the chart) 09/12 18: 18:22 Property removed, inventory done, secured in belongings bag- placed in locked jrd locker. Placed in in ED safe. jrd 09/13 08:30 09/12 17:47 Home Meds: metformin 500 mg Oral tab 1 tab 2 times per day; [place] [id number] 09/13 08:09/12 17:47 Home Meds: glipizide Oral; [place] [id number] 09/13 08:09/12 17:47 Home Meds: naproxen 250 mg Oral tab 1 tab every 6 hours; [place] [id number] 09/13 08:09/12 17:47 Home Meds: simvastatin 10 mg Oral tab 1 tab once daily; [place] [id number] 09/13 08:09/12 17:47 Home Meds: pantoprazole 20 mg oral TbEC 1 tab once daily; [facility]4 MTDD
[2016-09-13] MEDS ORDERED: ACETAMINOPHEN TAB 650MG DOSE (2X325MG) PO PRN (18:15)
[2016-09-13] MEDS ORDERED: NAPROXEN 250 MG TAB PO PRN (18:15)
[2016-09-13] MEDS ORDERED: LORazepam 2 MG TAB PO PRN (18:15)
[2016-09-13] MEDS ORDERED: traZODone 50 MG TAB PO PRN (18:15)
[2016-09-13] MEDS ORDERED: MOM 30ML SUSPENSION UDC PO PRN (18:15)
[2016-09-13] MEDS: GABAPENTIN 300 MG CAP PO SCH (20:01)
[2016-09-13] MEDS: THIAMINE 100 MG TAB PO SCH (20:01)
[2016-09-13] MEDS ORDERED: metFORMIN XR 500MG TAB *GLUCOPHAGE XR PO ONE (22:15)
[2016-09-14] MEDS: GLIMEPIRIDE 2 MG TAB PO SCH (06:33)
[2016-09-14 06:45] VITALS: BP 163/78
[2016-09-14] MEDS: FOLIC ACID 1 MG TAB PO SCH (08:30)
[2016-09-14] MEDS: PANTOPRAZOLE 40MG TAB (PROTONIX) PO SCH (08:30)
[2016-09-14] MEDS: GABAPENTIN 300 MG CAP PO SCH ×3 (08:30→21:19)
[2016-09-14] MEDS: MULTIVITAMINS/MINERALS THERAP 1 TAB PO SCH (08:30)
[2016-09-14] MEDS: IRBESARTAN 150 MG TAB PO SCH (08:31)
[2016-09-14] MEDS: hydroCHLOROthiazide 12.5 MG CAPSULE PO SCH (08:31)
[2016-09-14] MEDS: THIAMINE 100 MG TAB PO SCH ×2 (08:31→21:19)
[2016-09-14] MEDS: ATORVASTATIN 20 MG TAB PO SCH (08:32)
[2016-09-14 11:29] VITALS: BP 144/86
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
[2016-09-14 11:45] VITALS: BP 131/90
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
--- NOTE | 2016-09-14 17:06 | ECGEPIP ---
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 No prior ECG available for comparison at the time of interpretation. Electronically Signed On 09-14-2016 16:51:37 EST by Benson Salas
[2016-09-14] MEDS: metFORMIN XR 500MG TAB *GLUCOPHAGE XR PO SCH (17:27)
[2016-09-14 17:39] VITALS: BP 144/98
[2016-09-14 18:00] VITALS: BP 144/98
[2016-09-14] MEDS ORDERED: hydrOXYzine 50 MG TAB PO PRN (19:30)
[2016-09-15 06:36] VITALS: BP 120/78
[2016-09-15] MEDS: GLIMEPIRIDE 2 MG TAB PO SCH (06:45)
[2016-09-15] MEDS: buPROPion 75 MG TAB PO SCH (08:07)
[2016-09-15] MEDS: THIAMINE 100 MG TAB PO SCH ×2 (08:07→19:38)
[2016-09-15] MEDS: FOLIC ACID 1 MG TAB PO SCH (08:07)
[2016-09-15] MEDS: GABAPENTIN 300 MG CAP PO SCH ×3 (08:07→19:38)
[2016-09-15] MEDS: hydroCHLOROthiazide 12.5 MG CAPSULE PO SCH (08:07)
[2016-09-15] MEDS: IRBESARTAN 150 MG TAB PO SCH (08:07)
[2016-09-15] MEDS: PANTOPRAZOLE 40MG TAB (PROTONIX) PO SCH (08:07)
[2016-09-15] MEDS: ATORVASTATIN 20 MG TAB PO SCH (08:07)
[2016-09-15] MEDS: MULTIVITAMINS/MINERALS THERAP 1 TAB PO SCH (08:07)
[2016-09-15] MEDS: MAALOX 30 ML SUSP *UDC PO PRN ×2 (10:05→19:38)
[2016-09-15 11:02] VITALS: BP 120/78
[2016-09-15 12:03] VITALS: BP 148/91
[2016-09-15] MEDS: metFORMIN XR 500MG TAB *GLUCOPHAGE XR PO SCH (17:24)
[2016-09-15 17:57] VITALS: BP 159/81
--- NOTE | 2016-09-15 18:07 | EDDOCDS ---
Physician Documentation [facility] Name: Stan Zaldivar Age: 51 yrs Sex: Male : 1965 Arrival Date: 09/12/2016 Time: 17:16 Bed BHU3 Private MD: Disposition: 09/13 13:25 Critical Care: Critical care not applicable. pc Disposition: 09/13/16 13:28 Hospitalization ordered by Merly Vázquez for Inpatient Admission. Preliminary diagnosis are Alcohol abuse, Major depressive disorder, recurrent, moderate, Suicidal ideations, Essential (primary) hypertension. - Bed requested for Admit. - Status is Inpatient Admission. dpm - Condition is Stable. - Problem is new. - Symptoms are unchanged. Historical: - Allergies: No known drug Allergies; - Home Meds: 1. gabapentin 300 mg Oral cap 1 cap 3 times per day 2. metformin 500 mg ER 4 tabs daily in the evening with food Oral tab 1 tab 2 times per day 3. naproxen 500 mg oral tab 1 tab 2 times per day 4. pantoprazole 40 mg oral TbEC 1 tab once daily 5. glimepiride 2 mg Oral tab DAILY IN THE MORNING 6. atorvastatin 20 mg oral tab once daily 7. all meds verified with [facility] 09/13 0800 8. irbesartan-hydrochlorothiazide 150-12.5 mg oral tab once daily - PMHx: High Cholesterol; Hypertension; Diabetes - NIDDM: controlled; - PSHx: Hernia repair- Right inguinal; Knee surgery- Left; - Social history: Smoking status: Patient uses tobacco products, heavy tobacco smoker. Patient uses alcohol No barriers to communication noted, The patient speaks fluent Finnish, Speaks appropriately for age, Preferred Language: Finnish. - Family history: Not pertinent. - : The pt / caregiver states he / she is not on anticoagulants. Unable to Verify Home Med List with the patient / caregiver. - Exposure Risk Screening:: None identified. Vital Signs: 09/12 17:52 BP 112 / 63; Pulse 103; Resp 18; Temp 97.8; Pulse Ox 97% ; Pain 0/10; hs1 17:55 Weight 70.31 kg / 155.01 lbs; Height 5 ft. 3 in. (160.02 cm); hs1 21:35 BP 136 / 85; Pulse 97; Resp 18; Temp 97.8(T); Pulse Ox 98% on R/A; Pain 0/10; rw1 09/13 06:17 BP 139 / 78; Pulse 73; Resp 16; Temp 97.2(TE); Pulse Ox 98% on R/A; Pain 0/10; rw1 13:13 BP 171 / 103; Pulse 83; Resp 18; Temp 97.2(O); Pulse Ox 99% on R/A; dpm 13:34 BP 159 / 100; mk4 14:52 BP 159 / 106; Pulse 72; mk4 15:17 BP 156 / 101; Pulse 72; Resp 18; mk4 16:55 BP 137 / 87; Pulse 80; Resp 16; Temp 97.1(T); Pulse Ox 98% on R/A; dpm 09/12 17:55 Body Mass Index 27.46 (70.31 kg, 160.02 cm) hs1 MDM: 09/12 17:19 Consult PFS/PSA/Ice Guard Tester ordered. sd1 17:19 Consult PFS/PSA/Ice Guard Tester: Patient's case requires discussion with on-call sd1 Psychiatrist ordered. 17:19 PSA/PFS to call Nursing Marketing Sales Representative, to enter patient data on [place] Safe Act if patient sd1 involuntarily admitted or transferred for SI or HI ordered. 17:19 Confirm accurate psychiatric medication list and times of last dosage ordered. sd1 17:19 Detain Pt Until Medically/PFS Cleared ordered. sd1 17:20 Acetaminophen Level Ordered. EDMS 17:20 Basic Metabolic Profile Ordered. EDMS 17:20 Complete Blood Count Ordered. EDMS 17:20 Drug Eval Toxicology ED Only Ordered. EDMS 17:20 Ethyl Alcohol (ethanol) Ordered. EDMS 17:20 Liver Profile Ordered. EDMS 17:20 Salicylate Level Ordered. EDMS 17:20 Thyroid Stimulating Hormone Ordered. EDMS 18:34 Acetaminophen Level Reviewed. sd1 18:34 Basic Metabolic Profile Reviewed. sd1 18:34 Ethyl Alcohol (ethanol) Reviewed. sd1 18:34 Salicylate Level Reviewed. sd1 18:34 Complete Blood Count Reviewed. sd1 18:34 Drug Eval Toxicology ED Only Reviewed. sd1 18:34 Liver Profile Reviewed. sd1 18:34 Thyroid Stimulating Hormone Reviewed. sd1 18:44 Financial registration complete. zo 18:45 [facility] Payment Agreement was scanned into [employer] and attached to record. zo 20:46 metFORMIN 500 mg PO once ordered. rw1 20:46 Gabapentin 300 mg PO once ordered. rw1 09/13 00:05 Consult PFS/PSA/Ice Guard Tester complete. jmb 00:05 Consult PFS/PSA/Ice Guard Tester: Patient's case requires discussion with on-call jmb Psychiatrist complete. 00:05 PSA/PFS to call Nursing Marketing Sales Representative, to enter patient data on [place] Safe [place] if patient jmb involuntarily admitted or transferred for SI or HI complete. 05:48 CONSISTENT CARBS-PLASTIC JUAREZ+DIET ordered. EDMS 06:59 Awaiting: The patient is awaiting psychiatric admission or transfer. All labs and pc investigations have been reviewed. The vital signs have been reviewed. The patient remains medically cleared for disposition. 08:48 Gabapentin 300 mg PO once ordered. mk4 08:48 Naproxen 500 mg PO once; administer with food or milk ordered. mk4 08:48 Pantoprazole 40 mg PO once ordered. mk4 08:48 Glimepiride 2 mg PO once ordered. mk4 11:47 CONSISTENT CARBS-PLASTIC JUAREZ+DIET ordered. EDMS 13:05 [facility] ordered. EDMS 13:06 E Legal paperwork was scanned into [employer] and attached to record. jfb 13:25 [place] Safe Act reporting: The patient poses a significant risk to self or others, and pc PSA/PFS has notified the Nursing Marketing Sales Representative and he/she will complete the required data coordinator. The patient has been re-examined and re-evaluated. There is no appreciated change of the patient's symptoms at this time. Disposition: The historical points, examination findings, and any diagnostic results supporting the provided diagnosis, were discussed with the patient or legal guardian. The need for further work-up and/or treatment in the hospital was explained. 13:34 Irbesartan 150 mg PO once ordered. pc 13:34 Hydrochlorothiazide 12.5 mg PO once ordered. pc 15:57 CONSISTENT CARBS-PLASTIC JUAREZ+DIET ordered. EDMS 16:08 Gabapentin 300 mg PO once ordered. mk4 18:17 T-Sheet-- Draft Copy was scanned into [employer] and attached to record. klr Administered Medications: 09/12 20:55 Drug: metFORMIN 500 mg [metformin 500 mg tablet (1 tabs)] Route: PO; rw1 09/13 00:27 Follow up: Response: No Adverse Reaction [facility] 09/12 20:55 Drug: Gabapentin 300 mg [gabapentin 100 mg capsule (3 caps)] Route: PO; 09/13 00:27 Follow up: Response: No Adverse Reaction [facility] 09:07 Drug: Gabapentin 300 mg [gabapentin 100 mg capsule (3 caps)] Route: PO; 4 09:07 Drug: Naproxen 500 mg [naproxen 250 mg tablet (2 tabs)] Route: PO; mk4 09:07 Drug: Pantoprazole 40 mg [pantoprazole 40 mg tablet,delayed release (1 tabs)] Route: PO;mk4 10:22 Drug: Glimepiride 2 mg [glimepiride 2 mg tablet (1 tabs)] Route: PO; mk4 13:55 Drug: Irbesartan 150 mg [irbesartan 150 mg tablet (1 tabs)] Route: PO; mk4 13:55 Drug: Hydrochlorothiazide 12.5 mg Route: PO; 4 16:19 Drug: Gabapentin 300 mg [gabapentin 100 mg capsule (3 caps)] Route: PO; 4 Signatures: Dispatcher [employer] EDMS Rick Ware MD MD pc Delaney-Rowland, Sarah, MD MD sd1 Derick Baron,DUST BOX WORKER DUST BOX WORKER rw1 Anila Rubin Julie, PSA PSA Svetlana Horton RN RN hs1 Bartolome Deleon dpm, Joshua, RN RN jmb King, Margaret, RN RN 4 Nikole Bhatt MD MD fg Redder, Kathie klr The chart was reviewed and I authenticate all verbal orders and agree with the evaluation and treatment provided.Corrections: (The following items were deleted from the chart) 08:09/12 17:47 Home Meds: metformin 500 mg Oral tab 1 tab 2 times per day; [place] [id number] 09/13 08:09/12 17:47 Home Meds: glipizide Oral; [place] [id number] 09/13 08:09/12 17:47 Home Meds: naproxen 250 mg Oral tab 1 tab every 6 hours; [place] [id number] 09/13 08:09/12 17:47 Home Meds: simvastatin 10 mg Oral tab 1 tab once daily; hs1 mk4 09/13 08:30 09/12 17:47 Home Meds: pantoprazole 20 mg oral TbEC 1 tab once daily; hs1 mk4 Attachments: 18:45 [facility] Payment Agreement zo 18:17 T-Sheet-- Draft Copy klr Chart Complete MTDD
--- NOTE | 2016-09-15 18:07 | EDDOCDS ---
Nurse's Notes [facility] Name: Stan Zaldivar Age: 51 yrs Sex: Male : 1965 Arrival Date: 09/12/2016 Time: 17:16 Bed [facility] Private MD: Diagnosis: Alcohol abuse;Major depressive disorder, recurrent, moderate;Suicidal ideations;Essential (primary) hypertension Presentation: 09/12 17:40 Presenting complaint: police state that he pulled into work and was swerving vehicle hs1 and stumbling around parking lot. Arrested for DUI and stated to police that he was going to loose everything and that he was going to blow his brains out and that (pointing to officer) you are going to get the call tomorrow. Patient eluded that he was going to loose his sons and job and be on welfare. Pt very emotional. Mental Health Triage Level: Level 2: The patient was brought to the ED for evaluation because of a legal pickup order. Adult Sepsis Screening: The patient does not have new or worsening altered mentation. Patient's respiratory rate is less than 22. Systolic blood pressure is greater than 100. Patient has a qSOFA score of 0- Negative Sepsis Screen. Suicide/Homicide risk assessment- The patient admits to and/or has been reported to be having suicidal ideations. The patient reports that he/she has not been admitted to an inpatient mental health facility in the last 30 days. The patient reports that he/she has a recent or current history of substance abuse. The patient reports that he/she has no prior history of suicide attempt and/or organized plan. The patient reports that he/she has experienced a significant life altering event in the last 30 days. The patient reports that he/she has adequate social support. The patient reports he/she has no significant chronic medical condition(s). Status: Patient is not a workforce services representative or dependent. Transition of care: patient was not received from another setting of care. 17:40 Acuity: NATALIO Level 3 hs1 17:40 Method Of Arrival: Police Car hs1 Triage Assessment: 17:48 General: Appears in no apparent distress, Behavior is crying. Pain: Denies pain. HIV hs1 screening NA for this visit. Neurological: Level of Consciousness is awake, alert. Respiratory: Airway is patent Respiratory effort is even, unlabored, Respiratory pattern is regular, symmetrical. GI: No deficits noted. : Urine is clear. Musculoskeletal: No deficits noted. Historical: - Allergies: No known drug Allergies; - Home Meds: 1. gabapentin 300 mg Oral cap 1 cap 3 times per day 2. metformin 500 mg ER 4 tabs daily in the evening with food Oral tab 1 tab 2 times per day 3. naproxen 500 mg oral tab 1 tab 2 times per day 4. pantoprazole 40 mg oral TbEC 1 tab once daily 5. glimepiride 2 mg Oral tab DAILY IN THE MORNING 6. atorvastatin 20 mg oral tab once daily 7. all meds verified with [facility] 09/13 0800 8. irbesartan-hydrochlorothiazide 150-12.5 mg oral tab once daily - PMHx: High Cholesterol; Hypertension; Diabetes - NIDDM: controlled; - PSHx: Hernia repair- Right inguinal; Knee surgery- Left; - Social history: Smoking status: Patient uses tobacco products, heavy tobacco smoker. Patient uses alcohol No barriers to communication noted, The patient speaks fluent Peruvian, Speaks appropriately for age, Preferred Language: Peruvian. - Family history: Not pertinent. - : The pt / caregiver states he / she is not on anticoagulants. Unable to Verify Home Med List with the patient / caregiver. - Exposure Risk Screening:: None identified. Screenin/23 13:21 Screening information is obtained from the patient. Fall risk: No risks identified. mk4 Assistance ADL's: requires no assistance with activities of daily living. Abuse/DV Screen: The patient / caregiver reports he/she is: not in a situation that causes fear, pain or injury. Nutritional screening: No deficits noted. Advance Directives: Currently, there is no health care proxy. There is no active DNR order. There is no living will. There is no Power of Tour Driver. Advance directive information has not previously been placed in an [facility] medical record. home support is adequate. Assessment: 09/12 17:48 General: see triage assessment. rw1 19:30 General: Appears in no apparent distress, comfortable, Behavior is appropriate for age, rw1 cooperative, pleasant. Pain: Denies pain. Neurological: Level of Consciousness is awake, alert, obeys commands, Oriented to person, place, time. Respiratory: Airway is patent Respiratory effort is even, unlabored. Derm: Skin is pink, warm & dry. normal. 20:37 Reassessment: Patient appears in no apparent distress at this time. awake resting on rw1 stretcher, safety maintained will monitor.. 21:35 Reassessment: Patient appears in no apparent distress at this time. Patient denies pain rw1 at this time. awake resting on stretcher, safety maintained will monitor.. 22:30 General: Appears in no apparent distress, comfortable, Behavior is resting quietly on rw1 stretcher with eyes closed, safety maintained. Respiratory: Airway is patent Respiratory effort is even, unlabored. Derm: Skin is pink, warm & dry. normal. 23:34 Reassessment: Patient appears in no apparent distress at this time. awake resting on rw1 stretcher, safety maintained will monitor.. 09/13 00:26 Reassessment: Patient appears in no apparent distress at this time. awake resting on rw1 stretcher, safety maintained will monitor.. 01:25 General: Appears in no apparent distress, comfortable, Behavior is resting quietly on rw1 stretcher with eyes closed, safety maintained . Respiratory: Airway is patent Respiratory effort is even, unlabored. Derm: Skin is pink, warm & dry. normal. 02:32 Reassessment: Patient appears in no apparent distress at this time. resting quietly on rw1 stretcher with eyes closed, safety maintained will monitor.. 03:33 Reassessment: Patient appears in no apparent distress at this time. resting quietly on rw1 stretcher, safety maintained will monitor.. 04:34 General: Appears in no apparent distress, comfortable, Behavior is resting quietly on rw1 stretcher with eyes closed, safety maintained. Respiratory: Airway is patent Respiratory effort is even, unlabored. Derm: Skin is pink, warm & dry. normal. 05:30 Reassessment: Patient appears in no apparent distress at this time. continues resting rw1 quietly on stretcher, safety maintained will monitor.. 06:17 Reassessment: Patient appears in no apparent distress at this time. Patient denies pain rw1 at this time. resting quietly on stretcher with eyes closed, safety maintained . 07:30 General: Appears in no apparent distress, comfortable, Behavior is appropriate for age, js13 cooperative. Neurological: Level of Consciousness is awake, alert. Respiratory: Airway is patent Respiratory effort is even, unlabored. Derm: Skin is pink, warm & dry. 08:30 General: Appears in no apparent distress, comfortable, Behavior is cooperative. mk4 Neurological: Level of Consciousness is awake, alert, Oriented to person, place, time. 09:45 Reassessment: Patient denies pain at this time. Neurological: Level of Consciousness is mk4 awake, alert, Oriented to person, place, time. 10:45 General: Appears in no apparent distress, comfortable, Behavior is cooperative. mk4 Respiratory: No deficits noted. Airway is patent Respiratory effort is even, unlabored, Respiratory pattern is regular. 12:00 General: Appears in no apparent distress, comfortable, Behavior is cooperative. mk4 Respiratory: Airway is patent Respiratory effort is even, unlabored, Respiratory pattern is regular. 13:18 General: Appears in no apparent distress, comfortable, Behavior is cooperative. mk4 Neurological: Level of Consciousness is awake, alert, obeys commands, Oriented to person, place, time. 13:49 General: Appears distressed, pt anxious, B/P elevated and reported to Dr Ware. mk4 14:40 General: Appears in no apparent distress, comfortable, Behavior is cooperative, family mk4 visitors in room , pt pleasant , in good spirits. 15:50 General: Appears in no apparent distress, Behavior is cooperative. mk4 16:59 General: Appears in no apparent distress, comfortable, Behavior is appropriate for age, mk4 cooperative, pleasant, admission nurse in room with pt . Pain: Denies pain. Mental Health Eval: 09/12 23:49 Status: The patient is not a workforce services representative or dependent. [facility] Behavioral Health: The patient is not an established patient of [facility] Behavioral Health. Referral Information: Evaluation referral is generated by a police agency: [place] [employer], Officer Padmini. The patient was referred for evaluation because Suicidal Ideation/statement. Subjective: The patients chief complaint is Patient reports that he was brought in by police tonight because he reported to saying he wanting to kill himself. . Delusions are denied. Patient's mood is appropriate. Hallucinations are denied. Patient reports that he stated he wanted to kill himself after the police stopped him at work and gave him a DWI. Mental Health history: no relevant mental health problems or treatments. Mental Health Admissions: None. Current Outpatient Mental Health Services: None. Current living environment is The patient currently lives with his / her significant other, Mari Love. Patient presents to Emergency Department with the following symptoms within the past 2 weeks: alcohol abuse and patient reported suicidal ideation while under the influence of alcohol. Substance abuse: Patient uses beer, Patient reports drinking beer several times during the week without full disclosure of how much weekly. Last use was 6 hours ago. Patient does not have a history of DTs. Mental status exam: Patients appearance is appropriate, Patient's behavior is cooperative, Speech is normal. Affect is flat. Mood is appropriate. Hallucinations are denied. Appetite is normal. Memory is fair. Energy level is normal. Content of thought is normal. Thought process is intact. Cognitive level is oriented to person, place, time and situation Patient's insight is good. Judgement is fair. Rapport with interviewer is good. Suicidal Ideation is present with no specific plan. Homicidal ideation is denied. Disposition: Medically cleared for disposition by Nikole Bhatt MD Psychiatric Consult is performed by phone with Dr Merly Vázquez. [facility] Admission Criteria: The patient is experiencing suicidal ideation. Narrative: Spoke with Dr. Cevallos who feels that patient should be admitted for evaluation and further treatment. 09/13 07:21 Legal Status: Patient's legal status will be Emergency admission: 9.39. [place] Safe Act:. 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 11:06 Patient presents to Emergency Department with the following symptoms within the past 2 weeks: alcohol abuse, depressed mood, poor impulse control, suicidal ideation with no plan. [facility] Admission Criteria: The patient requires continuous observation and/or control to protect self, others or property. The patient's care requires a multi-modal treatment plan under close supervision and coordination due to the complexity and severity of the patient's symptoms. The patient requires administration and monitoring of psychoactive medications by skilled medical providers due to the side effects of the psychoactive medications or significant dosage adjustments. 14:44 Insurance Pre-Certification:. 14:52 Insurance Pre-Certification: approved by: approved for 4 days from 09/13-09/16 with ac concurrent review with Lula akins [facility]. Auth. # is [id number]. The phone # is [phone], ext. [phone]. Vital Signs: 09/12 17:52 BP 112 / 63; Pulse 103; Resp 18; Temp 97.8; Pulse Ox 97% ; Pain 0/10; hs1 17:55 Weight 70.31 kg; Height 5 ft. 3 in. (160.02 cm); hs1 21:35 BP 136 / 85; Pulse 97; Resp 18; Temp 97.8(T); Pulse Ox 98% on R/A; Pain 0/10; rw1 09/13 06:17 BP 139 / 78; Pulse 73; Resp 16; Temp 97.2(TE); Pulse Ox 98% on R/A; Pain 0/10; rw1 13:13 BP 171 / 103; Pulse 83; Resp 18; Temp 97.2(O); Pulse Ox 99% on R/A; dpm 13:34 BP 159 / 100; mk4 14:52 BP 159 / 106; Pulse 72; mk4 15:17 BP 156 / 101; Pulse 72; Resp 18; mk4 16:55 BP 137 / 87; Pulse 80; Resp 16; Temp 97.1(T); Pulse Ox 98% on R/A; dpm 09/12 17:55 Body Mass Index 27.46 (70.31 kg, 160.02 cm) hs1 Vitals: 09/12 17:49 Log In time N/A- police car arrival. hs1 ED Course: 17:18 Patient visited by Anila Rubin. zo 17:18 Heather Mon MD is Attending Physician. sd1 17:18 Patient moved to [facility] zo 17:18 Patient moved to [facility] zo 17:19 Patient visited by Heather Mon MD. sd1 17:35 Drug Eval Toxicology ED Only Sent. jc4 17:44 Triage Initiated hs1 17:45 Psych Safety Check: Location: Psych Room. Visual Assessment: Cooperative, Agitated. jrd 17:45 Property removed, inventory done, secured in belongings bag- placed in locked locker. jrd Placed in in ED safe. 17:48 Acetaminophen Level Sent. hs1 17:48 Basic Metabolic Profile Sent. hs1 17:48 Complete Blood Count Sent. hs1 17:48 Ethyl Alcohol (ethanol) Sent. hs1 17:48 Liver Profile Sent. hs1 17:48 Salicylate Level Sent. hs1 17:48 Thyroid Stimulating Hormone Sent. hs1 17:49 No IV's were initiated during this patient's visit. hs1 17:55 Patient visited by Svetlana Gant, RONALD. hs1 18:00 Psych Safety Check: Location: Psych Room. Visual Assessment: Cooperative, Agitated. jrd 18:15 Psych Safety Check: Location: Psych Room. Visual Assessment: Cooperative. jrd 18:23 Patient visited by Domenic Ramirez PCA. jrd 18:45 [facility] Payment Agreement was scanned into [facility] and attached to record. zo 18:59 Patient visited by Porfirio Bermudez. tr 19:03 Leann Yanez,RONALD is Primary Nurse. cf2 19:03 Patient visited by Leann Yanez,RONALD. cf2 19:14 Patient visited by Porfirio Bermudez. tr 19:30 Patient visited by Porfirio Bermudez. tr 19:42 Patient visited by Porfirio Bermudez. tr 20:02 Patient visited by Porfirio Bermudez. tr 20:15 Patient visited by Porfirio Bermudez. tr 20:29 Patient visited by Porfirio Bermudez. tr 20:54 Attending Physician role handed off by Heather Mon MD fg 20:54 Nikole Bhatt MD is Attending Physician. fg 20:57 Patient visited by Porfirio Bermudez. tr 21:08 Patient moved to OBSERVATION fg 21:16 Patient visited by Porfirio Bermudez. tr 21:44 Patient visited by Porfirio Bermudez. tr 22:18 Patient visited by Porfirio Bermudez. tr 22:31 Patient visited by Derick Baron LPN. rw1 22:33 Patient visited by Porfirio Bermudez. tr 22:45 Patient visited by Porfirio Bermudez. tr 23:18 Patient visited by Porfirio Bermudez. tr 23:29 Patient visited by Porfirio Bermudez. tr 23:42 Patient visited by Tim. Lara tr 09/13 00:05 Merly Vázquez is Hospitalizing Provider. fg 00:16 Patient visited by Porfirio Bermudez. tr 00:30 Patient visited by Tim. Lara tr 00:44 Patient visited by Porfirio Bermudez. tr 00:58 Patient visited by Porfirio Bermudez. tr 01:16 Patient visited by Porfirio Bermudez. tr 01:28 Patient visited by Bermudez, Porfirio. tr 01:47 Patient visited by [facility]. tr 02:01 Patient visited by [facility]. tr 02:16 Patient visited by [facility]. tr 02:49 Patient visited by [facility]. tr 03:05 Patient visited by [facility]. tr 03:19 Patient visited by [facility]. tr 03:57 Patient visited by [facility]. tr 03:59 Patient visited by [facility]. tr 04:19 Patient visited by [facility]. tr 05:00 Patient visited by [facility]. tr 05:20 Patient visited by [facility]. tr 05:31 Patient visited by [facility]. tr 05:59 Patient visited by [facility]. tr 06:15 Patient visited by [facility]. tr 06:29 Patient visited by [facility]. tr 06:43 Patient visited by [facility]. tr 06:57 Patient visited by [facility]. tr 06:59 Attending Physician role handed off by Nikole Bhatt MD pc 06:59 Rick Ware MD is Attending Physician. pc 07:24 Patient visited by Bartolome Deleon. dpm 07:37 Patient visited by Bartolome Deleon. dpm 07:45 Patient visited by Bartolome Deleon. dpm 08:01 Patient visited by Bartolome Deleon. dpm 08:21 Patient visited by Bartolome Deleon. dpm 08:40 Patient visited by Bartolome Deleon. dpm 08:56 Patient visited by Bartolome Deleon. dpm 09:13 Patient visited by Bartolome Deleon. dpm 09:32 Patient visited by Bartolome Deleon. dpm 09:51 Patient visited by Bartolome Deleon. dpm 10:00 Patient visited by Bartolome Deleon. dpm 10:15 Patient visited by Bartolome Deleon. dpm 10:32 Patient visited by Bartolome Deleon. dpm 11:03 Patient visited by Bartolome Deleon. dpm 11:26 Patient visited by Bartolome Deleon. dpm 11:51 Patient visited by Bartolome Deleon. dpm 12:33 Patient visited by Bratolome Deleon. dpm 12:50 Patient visited by Bartolome Deleon. dpm 13:06 [facility] Legal paperwork was scanned into [facility] and attached to record. jfb 13:13 Patient visited by Bartolome Deleon. dpm 13:21 The patient / caregiver is instructed regarding the plan of care and ED course. mk4 13:21 No procedures done that require assistance. mk4 13:25 Patient moved to [facility] pc 13:28 Merly Vázquez is Hospitalizing Provider. pc 13:30 Patient visited by Bartolome Deleon. dpm 13:46 Patient visited by Bartolome Deleon. dpm 14:03 Patient visited by Bartolome Deleon. dpm 14:19 Patient visited by Bartolome Deleon. dpm 15:15 Patient visited by Bartolome Deleon. dpm 15:41 Patient visited by Bartolome Deleon. dpm 15:55 Patient visited by Bartolome Deleon. dpm 16:01 Patient visited by Bartolome Deleon. dpm 16:24 Patient visited by Bartolome Deleon. dpm 16:49 Patient visited by Bartolome Deleon. dpm 18:17 T-Sheet-- Draft Copy was scanned into [facility] and attached to record. klr Administered Medications: 09/12 20:55 Drug: metFORMIN 500 mg [metformin 500 mg tablet (1 tabs)] Route: PO; 09/13 00:27 Follow up: Response: No Adverse Reaction [facility] 09/12 20:55 Drug: Gabapentin 300 mg [gabapentin 100 mg capsule (3 caps)] Route: PO; 09/13 00:27 Follow up: Response: No Adverse Reaction 09:07 Drug: Gabapentin 300 mg [gabapentin 100 mg capsule (3 caps)] Route: PO; 4 09:07 Drug: Naproxen 500 mg [naproxen 250 mg tablet (2 tabs)] Route: PO; mk4 09:07 Drug: Pantoprazole 40 mg [pantoprazole 40 mg tablet,delayed release (1 tabs)] Route: PO;mk4 10:22 Drug: Glimepiride 2 mg [glimepiride 2 mg tablet (1 tabs)] Route: PO; mk4 13:55 Drug: Irbesartan 150 mg [irbesartan 150 mg tablet (1 tabs)] Route: PO; mk4 13:55 Drug: Hydrochlorothiazide 12.5 mg Route: PO; mk4 16:19 Drug: Gabapentin 300 mg [gabapentin 100 mg capsule (3 caps)] Route: PO; mk4 Attachments: 09/13 13:06 E Legal paperwork jfb Order Results: Lab Order: Acetaminophen Level; SPEC'M 09/12/16 17:32 Test: ACETAMINOPHEN LEVEL; Value: < 2.0; Range: 10.0-30.0; Abnormal: Below low normal; Units: UG/ML; Status: F Lab Order: Basic Metabolic Profile; SPEC'M 09/12/16 17:32 Test: GLUCOSE, FASTING; Value: 118; Range: 70-105; Abnormal: Above high normal; Units: MG/DL; Status: F Test: BLOOD UREA NITROGEN; Value: 14; Range: 7-18; Units: MG/DL; Status: F Test: CREATININE FOR GFR; Value: 0.87; Range: 0.70-1.30; Units: MG/DL; Status: F Test: GLOMERULAR FILTRATION RATE; Value: > 60.0; Range: >56; Status: F Test: SODIUM LEVEL; Value: 140; Range: 136-145; Units: MEQ/L; Status: F Test: POTASSIUM SERUM; Value: 3.9; Range: 3.5-5.1; Units: MEQ/L; Status: F Test: CHLORIDE LEVEL; Value: 104; Range: 98-107; Units: MEQ/L; Status: F Test: CARBON DIOXIDE LEVEL; Value: 25; Range: 21-32; Units: MEQ/L; Status: F Test: ANION GAP; Value: 11; Range: 8-16; Units: MEQ/L; Status: F Test: CALCIUM LEVEL; Value: 8.6; Range: 8.5-10.1; Units: MG/DL; Status: F Test Note: ; Units are mL/min/1.73 m2 Chronic Kidney Disease Staging per NKF: Stage I & II GFR >=60 Normal to Mildly Decreased Stage III GFR 30-59 Moderately Decreased Stage IV GFR 15-29 Severely Decreased Stage V GFR <15 Very Little GFR Left ESRD GFR <15 on POSTDOCTORAL SCHOLAR Lab Order: Complete Blood Count; SPEC'M 09/12/16 17:32 Test: WHITE BLOOD COUNT; Value: 6.8; Range: 4.0-10.0; Units: K/mm3; Status: F Test: RED BLOOD COUNT; Value: 5.06; Range: 4.30-6.10; Units: M/mm3; Status: F Test: HEMOGLOBIN; Value: 14.9; Range: 14.0-18.0; Units: g/dl; Status: F Test: HEMATOCRIT; Value: 44.3; Range: 42.0-52.0; Units: %; Status: F Test: MEAN CORPUSCULAR VOLUME; Value: 87.7; Range: 80.0-96.0; Units: fl; Status: F Test: MEAN CORPUSCULAR HEMOGLOBIN; Value: 29.4; Range: 27.0-33.0; Units: pg; Status: F Test: MEAN CORPUSCULAR HGB CONC; Value: 33.5; Range: 32.0-36.5; Units: g/dl; Status: F Test: RED CELL DISTRIBUTION WIDTH; Value: 12.6; Range: 11.5-14.5; Units: %; Status: F Test: PLATELET COUNT, AUTOMATED; Value: 309; Range: 150-450; Units: k/mm3; Status: F Lab Order: Drug Eval Toxicology ED Only; SPEC'M 09/12/16 17:31 Test: AMPHETAMINES LEVEL URINE; Value: NEGATIVE; Range: NEGATIVE; Status: F Test: BARBITURATES URINE; Value: NEGATIVE; Range: NEGATIVE; Status: F Test: BENZODIAZEPINES URINE; Value: NEGATIVE; Range: NEGATIVE; Status: F Test: CANNABINOIDS URINE; Value: NEGATIVE; Range: NEGATIVE; Status: F Test: COCAINE METABOLITE URINE; Value: NEGATIVE; Range: NEGATIVE; Status: F Test: METHADONE URINE; Value: NEGATIVE; Range: NEGATIVE; Status: F Test: OPIATES URINE; Value: NEGATIVE; Range: NEGATIVE; Status: F Test: TRICYCLIC ANTIDEPRESS URINE; Value: NEGATIVE; Range: NEGATIVE; Status: F Test Note: ; ALL PRESUMPTIVE POSITIVE FINDINGS ARE UNCONFIRMED NORMAL VALUES THRESHOLD IN NG/ML AMPHETAMINES 1000 METHAMPHETAMINES 1000 BARBITURATES 300 BENZODIAZEPINES 300 CANNABINOIDS (THC) 50 COCAINE METABOLITE 300 METHADONE 300 OPIATES 300 PHENCYCLIDINE 25 TRICYCLIC ANTIDEPRESSANTS 1000 RESULTS ARE FOR MEDICAL PURPOSES ONLY. ALL URINE SPECIMENS WILL BE SAVED FOR 3 DAYS. IF CONFIRMATION OF A PRESUMPTIVE POSTIVE SCREEN RESULT IS DESIRED, CALL CHEMISTRY ([phone]) AND REQUEST URINE TO BE SENT TO REFERENCE LAB. FOR A LIST OF CLOSELY RELATED COMPOUNDS PLEASE CALL THE LAB. Lab Order: Ethyl Alcohol (ethanol); SPEC'M 09/12/16 17:32 Test: ETHYL ALCOHOL (ETHANOL); Value: 0.179; Range: 0.000-0.010; Abnormal: Above high normal; Units: %; Status: F Lab Order: Liver Profile; SPEC'M 09/12/16 17:32 Test: AST/SGOT; Value: 22; Range: 15-37; Units: U/L; Status: F Test: ALT/SGPT; Value: 31; Range: 12-78; Units: U/L; Status: F Test: ALKALINE PHOSPHATASE; Value: 101; Range: 45-117; Units: U/L; Status: F Test: BILIRUBIN,TOTAL; Value: 0.2; Range: 0.2-1.0; Units: MG/DL; Status: F Test: BILIRUBIN,DIRECT; Value: < 0.1; Range: 0.0-0.2; Units: MG/DL; Status: F Test: TOTAL PROTEIN; Value: 7.7; Range: 6.4-8.2; Units: GM/DL; Status: F Test: ALBUMIN; Value: 4.3; Range: 3.2-5.2; Units: GM/DL; Status: F Test: ALBUMIN/GLOBULIN RATIO; Value: 1.26; Range: 1.00-1.93; Status: F Lab Order: Salicylate Level; SPEC'M 09/12/16 17:32 Test: SALICYLATE LEVEL; Value: < 1.7; Range: 5.0-30.0; Abnormal: Below low normal; Units: MG/DL; Status: F Lab Order: Thyroid Stimulating Hormone; SPEC'M 09/12/16 17:32 Test: THYROID STIMULATING HORMONE; Value: 1.390; Range: 0.358-3.740; Units: uIU/ML; Status: F Outcome: 00:05 Decision to Hospitalize by Provider. fg 13:21 Discharge Assessment: Patient awake, alert and oriented x 3. No cognitive and/or mk4 functional deficits noted. Patient verbalized understanding of disposition instructions. Patient awake and alert. patient administered narcotics - no. Admitted to Psych accompanied by tech, via wheelchair, with chart. The following High Risk Discharge criteria are identified: None. Condition: good Condition: stable. No special radiology studies were completed. Admission hand-off: Report Faxed Fax receipt verified by [facility]. 13:28 Decision to Hospitalize by Provider. 17:06 Patient left the ED. dpm Signatures: Rick Ware MD MD pc Delaney-Rowland, Sarah, MD MD sd1 Antonio Irving, PSA PSA miladis Bermudez, Derick Santo,HOURLY ASSOCIATE HOURLY ASSOCIATE rw1 Anila Rubin Julie, PSA PSA Svetlana Horton, RN RN hs1 Otilia Vásquez, RN RN jc4 Otilia Diego,RN RN js13 Bartolome Deleon dpm Flash Campos,RN RN Milady Ricardo RN RN mk4 Domenic Ramirez, TIARRA PAID SEARCH SPECIALIST Nikole Newman MD MD fg Redder, Kathie klr Familetti-Gonzalez, Christina,RN RN cf2 Corrections: (The following items were deleted from the chart) 09/12 18:23 18:22 Property removed, inventory done, secured in belongings bag- placed in locked jrd locker. Placed in in ED safe. [facility] 09/13 08:30 09/12 17:47 Home Meds: metformin 500 mg Oral tab 1 tab 2 times per day; [facility] 09/13 08:30 09/12 17:47 Home Meds: glipizide Oral; [place] [address] 09/13 08:30 09/12 17:47 Home Meds: naproxen 250 mg Oral tab 1 tab every 6 hours; [place] [address] 09/13 08:09/12 17:47 Home Meds: simvastatin 10 mg Oral tab 1 tab once daily; [place] [address] 09/13 08:30 09/12 17:47 Home Meds: pantoprazole 20 mg oral TbEC 1 tab once daily; [place] [id number] Chart Complete MTDD
--- NOTE | 2016-09-15 18:07 | EDDOCDS ---
Physician Documentation [facility] Name: Stan Zaldivar Age: 51 yrs Sex: Male : 1965 Arrival Date: 09/12/2016 Time: 17:16 Bed BHU3 Private MD: Disposition: 09/13 13:25 Critical Care: Critical care not applicable. pc Disposition: 09/13/16 13:28 Hospitalization ordered by Merly Vázquez for Inpatient Admission. Preliminary diagnosis are Alcohol abuse, Major depressive disorder, recurrent, moderate, Suicidal ideations, Essential (primary) hypertension. - Bed requested for Admit. - Status is Inpatient Admission. dpm - Condition is Stable. - Problem is new. - Symptoms are unchanged. Historical: - Allergies: No known drug Allergies; - Home Meds: 1. gabapentin 300 mg Oral cap 1 cap 3 times per day 2. metformin 500 mg ER 4 tabs daily in the evening with food Oral tab 1 tab 2 times per day 3. naproxen 500 mg oral tab 1 tab 2 times per day 4. pantoprazole 40 mg oral TbEC 1 tab once daily 5. glimepiride 2 mg Oral tab DAILY IN THE MORNING 6. atorvastatin 20 mg oral tab once daily 7. all meds verified with [facility] 09/13 0800 8. irbesartan-hydrochlorothiazide 150-12.5 mg oral tab once daily - PMHx: High Cholesterol; Hypertension; Diabetes - NIDDM: controlled; - PSHx: Hernia repair- Right inguinal; Knee surgery- Left; - Social history: Smoking status: Patient uses tobacco products, heavy tobacco smoker. Patient uses alcohol No barriers to communication noted, The patient speaks fluent Somali, Speaks appropriately for age, Preferred Language: Somali. - Family history: Not pertinent. - : The pt / caregiver states he / she is not on anticoagulants. Unable to Verify Home Med List with the patient / caregiver. - Exposure Risk Screening:: None identified. Vital Signs: 09/12 17:52 BP 112 / 63; Pulse 103; Resp 18; Temp 97.8; Pulse Ox 97% ; Pain 0/10; hs1 17:55 Weight 70.31 kg / 155.01 lbs; Height 5 ft. 3 in. (160.02 cm); hs1 21:35 BP 136 / 85; Pulse 97; Resp 18; Temp 97.8(T); Pulse Ox 98% on R/A; Pain 0/10; rw1 09/13 06:17 BP 139 / 78; Pulse 73; Resp 16; Temp 97.2(TE); Pulse Ox 98% on R/A; Pain 0/10; rw1 13:13 BP 171 / 103; Pulse 83; Resp 18; Temp 97.2(O); Pulse Ox 99% on R/A; dpm 13:34 BP 159 / 100; mk4 14:52 BP 159 / 106; Pulse 72; mk4 15:17 BP 156 / 101; Pulse 72; Resp 18; mk4 16:55 BP 137 / 87; Pulse 80; Resp 16; Temp 97.1(T); Pulse Ox 98% on R/A; dpm 09/12 17:55 Body Mass Index 27.46 (70.31 kg, 160.02 cm) hs1 MDM: 09/12 17:19 Consult PFS/PSA/Breaker Layer ordered. sd1 17:19 Consult PFS/PSA/Breaker Layer: Patient's case requires discussion with on-call sd1 Psychiatrist ordered. 17:19 PSA/PFS to call Nursing Data Collection Technician, to enter patient data on [place] Safe [place] if patient sd1 involuntarily admitted or transferred for SI or HI ordered. 17:19 Confirm accurate psychiatric medication list and times of last dosage ordered. sd1 17:19 Detain Pt Until Medically/PFS Cleared ordered. sd1 17:20 Acetaminophen Level Ordered. EDMS 17:20 Basic Metabolic Profile Ordered. EDMS 17:20 Complete Blood Count Ordered. EDMS 17:20 Drug Eval Toxicology ED Only Ordered. EDMS 17:20 Ethyl Alcohol (ethanol) Ordered. EDMS 17:20 Liver Profile Ordered. EDMS 17:20 Salicylate Level Ordered. EDMS 17:20 Thyroid Stimulating Hormone Ordered. EDMS 18:34 Acetaminophen Level Reviewed. sd1 18:34 Basic Metabolic Profile Reviewed. sd1 18:34 Ethyl Alcohol (ethanol) Reviewed. sd1 18:34 Salicylate Level Reviewed. sd1 18:34 Complete Blood Count Reviewed. sd1 18:34 Drug Eval Toxicology ED Only Reviewed. sd1 18:34 Liver Profile Reviewed. sd1 18:34 Thyroid Stimulating Hormone Reviewed. sd1 18:44 Financial registration complete. zo 18:45 [facility] Payment Agreement was scanned into [employer] and attached to record. zo 20:46 metFORMIN 500 mg PO once ordered. rw1 20:46 Gabapentin 300 mg PO once ordered. rw1 09/13 00:05 Consult PFS/PSA/Breaker Layer complete. jmb 00:05 Consult PFS/PSA/Breaker Layer: Patient's case requires discussion with on-call jmb Psychiatrist complete. 00:05 PSA/PFS to call Nursing Data Collection Technician, to enter patient data on [place] Safe [place] if patient jmb involuntarily admitted or transferred for SI or HI complete. 05:48 CONSISTENT CARBS-PLASTIC JUAREZ+DIET ordered. EDMS 06:59 Awaiting: The patient is awaiting psychiatric admission or transfer. All labs and pc investigations have been reviewed. The vital signs have been reviewed. The patient remains medically cleared for disposition. 08:48 Gabapentin 300 mg PO once ordered. mk4 08:48 Naproxen 500 mg PO once; administer with food or milk ordered. mk4 08:48 Pantoprazole 40 mg PO once ordered. mk4 08:48 Glimepiride 2 mg PO once ordered. mk4 11:47 CONSISTENT CARBS-PLASTIC JUAREZ+DIET ordered. EDMS 13:05 Admit to [facility]: ordered. EDMS 13:06 E Legal paperwork was scanned into [employer] and attached to record. jfb 13:25 [place] Safe Act reporting: The patient poses a significant risk to self or others, and pc PSA/PFS has notified the Nursing Data Collection Technician and he/she will complete the required senior data developer. The patient has been re-examined and re-evaluated. There is no appreciated change of the patient's symptoms at this time. Disposition: The historical points, examination findings, and any diagnostic results supporting the provided diagnosis, were discussed with the patient or legal guardian. The need for further work-up and/or treatment in the hospital was explained. 13:34 Irbesartan 150 mg PO once ordered. pc 13:34 Hydrochlorothiazide 12.5 mg PO once ordered. pc 15:57 CONSISTENT CARBS-PLASTIC JUAREZ+DIET ordered. EDMS 16:08 Gabapentin 300 mg PO once ordered. mk4 18:17 T-Sheet-- Draft Copy was scanned into [employer] and attached to record. klr Administered Medications: 09/12 20:55 Drug: metFORMIN 500 mg [metformin 500 mg tablet (1 tabs)] Route: PO; rw1 09/13 00:27 Follow up: Response: No Adverse Reaction [facility] 09/12 20:55 Drug: Gabapentin 300 mg [gabapentin 100 mg capsule (3 caps)] Route: PO; 09/13 00:27 Follow up: Response: No Adverse Reaction [facility] 09:07 Drug: Gabapentin 300 mg [gabapentin 100 mg capsule (3 caps)] Route: PO; 4 09:07 Drug: Naproxen 500 mg [naproxen 250 mg tablet (2 tabs)] Route: PO; mk4 09:07 Drug: Pantoprazole 40 mg [pantoprazole 40 mg tablet,delayed release (1 tabs)] Route: PO;mk4 10:22 Drug: Glimepiride 2 mg [glimepiride 2 mg tablet (1 tabs)] Route: PO; mk4 13:55 Drug: Irbesartan 150 mg [irbesartan 150 mg tablet (1 tabs)] Route: PO; mk4 13:55 Drug: Hydrochlorothiazide 12.5 mg Route: PO; 4 16:19 Drug: Gabapentin 300 mg [gabapentin 100 mg capsule (3 caps)] Route: PO; 4 Signatures: Dispatcher [employer] EDMS Rick Ware MD MD pc Delaney-Rowland, Sarah, MD MD sd1 Derick Baron,FELLED SEAM OPERATOR FELLED SEAM OPERATOR rw1 Anila Rubin Julie, PSA PSA Svetlana Horton RN RN hs1 Bartolome Deleon dpm, Joshua, RN RN jmb King, Margaret, RN RN 4 Nikole Bhatt MD MD fg Redder, Kathie klr The chart was reviewed and I authenticate all verbal orders and agree with the evaluation and treatment provided.Corrections: (The following items were deleted from the chart) 08:09/12 17:47 Home Meds: metformin 500 mg Oral tab 1 tab 2 times per day; [place] [address] 09/13 08:09/12 17:47 Home Meds: glipizide Oral; [place] [address] 09/13 08:09/12 17:47 Home Meds: naproxen 250 mg Oral tab 1 tab every 6 hours; [place] [address] 09/13 08:09/12 17:47 Home Meds: simvastatin 10 mg Oral tab 1 tab once daily; hs1 mk4 09/13 08:30 09/12 17:47 Home Meds: pantoprazole 20 mg oral TbEC 1 tab once daily; hs1 mk4 Attachments: 18:45 [facility] Payment Agreement zo 18:17 T-Sheet-- Draft Copy klr Chart Complete MTDD
[2016-09-15 18:12] VITALS: BP 159/81
--- NOTE | 2016-09-15 20:33 | IPNPDOC ---
[facility] Progress Note Progress Note DATE OF SERVICE: 09/15/16 SUBJECTIVE: Patient is calm and cooperative with interview. Patient denies any suicidal intent, reporting making a suicidal statement while intoxicated on alcohol prior to admission. Patient reports saying it in anger. He denies SI/HI. He reports his mood is improving since admission. Patient denies alcohol w/d symptoms. Patient is med compliant and denies med s/e's. Patient reports fair sleep and appetite. He denies AH/VH. No signs of psychosis reported or observed. OBJECTIVE: Vitals - see below. Labs - see below. MENTAL STATUS EXAMINATION: Patient is calm and cooperative, engaged in the interview. Fair eye contact. Speech is rapid, but not pressured. Mood is anxious. Affect is agitated, frustrated. No evidence of delusions or hallucinations. Memory is fair. Patient is fully oriented. Patient is denying suicidal or homicidal ideation. TP-linear and goal directed; TC-focused on discharge. Insight and judgment are poor to fair. ASSESSMENT: 1. Depressive d/o, unspecified. 2. Alcohol use d/o. PLAN: 1. Continue close observations. 2. Continue psychotropic meds as written. 3. Continue alcohol w/d protocol; continue vitamin supplementation. 4. Nurses order to allow patient's 17yo son exception to visit rule, but are to meet in an isolated meeting room away from the milieu. TIME SPENT: 30 minutes Vital Signs Vital Signs Date Time Temp Pulse Resp B/P Pulse Ox O2 Delivery O2 Flow Rate FiO2 09/15/16 18:12 97.8 97 16 159/81 09/14/16 11:26 Room Air 09/13/16 16:30 98 Laboratory Data 24H Labs Laboratory Tests 2 09/15/16 06:21: Bedside Glucose (Misc Panel) 138H Current Medications Current Medications Acetaminophen (Tylenol Tab) 650 mg Q6HP PRN PO HEADACHE or DISCOMFORT Last administered on 09/13/16 19:59; Start 09/13/16 at 18:15; Stop 10/13/16 at 18:14 Al Hydrox/Mg Hydrox/Simethicone (Mylanta) 30 ml Q4HP PRN PO HEARTBURN/ INDIGESTION Last administered on 09/15/16 19:38; Start 09/13/16 at 18:15; Stop 10/13/16 at 18:14 Atorvastatin Calcium (Lipitor) 20 mg DAILY PO Last administered on 09/15/16 08 :07; Start 09/14/16 at 09:00; Stop 10/14/16 at 08:59 Bupropion HCl (Wellbutrin) 75 mg QAM PO Last administered on 09/15/16 08:07; Start 09/15/16 at 09:00; Stop 10/15/16 at 08:59 Folic Acid (Folic Acid) 1 mg DAILY PO Last administered on 09/15/16 08:07; Start 09/14/16 at 09:00; Stop 10/14/16 at 08:59 Gabapentin (Neurontin) 300 mg TID PO Last administered on 09/15/16 19:38; Start 09/13/16 at 21:00; Stop 10/13/16 at 20:59 Glimepiride (Amaryl) 2 mg DAILY@0730 PO Last administered on 09/15/16 06:45; Start 09/14/16 at 07:30; Stop 10/14/16 at 07:29 Home Med (Med Rec Complete!) ASDIRECTED XX ; Start 09/13/16 at 14:30; Stop at 14:30; Status DC Hydrochlorothiazide (Hydrodiuril) 12.5 mg DAILY PO Last administered on 08:07; Start 09/14/16 at 09:00; Stop 10/14/16 at 08:59 Hydroxyzine HCl (Atarax) 50 mg Q6H PRN PO ANXIETY; Start 09/14/16 at 19:30; Stop 10/14/16 at 19:29 Irbesartan (Avapro) 150 mg DAILY PO Last administered on 09/15/16 08:07; Start 09/14/16 at 09:00; Stop 10/14/16 at 08:59 Lorazepam (Ativan) 2 mg ASDIRECTED PRN PO SEE PROTOCOL; Start 09/13/16 at 18:15 ; Stop 09/20/16 at 18:14 Magnesium Hydroxide (Milk Of Magnesia) 30 ml DAILYPRN PRN PO CONSTIPATION; Start 09/13/16 at 18:15; Stop 10/13/16 at 18:14 Metformin HCl (Glucophage Xr) 2,000 mg ACS PO Last administered on 09/15/16 17 :24; Start 09/14/16 at 17:30; Stop 10/14/16 at 17:29 Multivitamins (Theragram-M) 1 tab DAILY PO Last administered on 09/15/16 08:07 ; Start 09/14/16 at 09:00; Stop 10/14/16 at 08:59 Naproxen (Naprosyn) 500 mg BIDP PRN PO PAIN; Start 09/13/16 at 18:15; Stop at 18:14 Pantoprazole Sodium (Protonix) 40 mg DAILY PO Last administered on 09/15/16 08 :07; Start 09/14/16 at 09:00; Stop 10/14/16 at 08:59 Thiamine HCl (Thiamine HCl) 100 mg BID PO Last administered on 09/15/16 19:38 ; Start 09/13/16 at 21:00; Stop 09/16/16 at 09:01 Trazodone HCl (Desyrel) 50 mg QHSP PRN PO INSOMNIA; Start 09/13/16 at 18:15; Stop 10/13/16 at 18:14 Allergies Coded Allergies: No Known Allergies (Unverified , 09/13/16) ELVIS ROOT MD Sep 15, 2016 20:33 ELVIS ROOT MD Sep 15, 2016 20:33
[2016-09-16 06:32] VITALS: BP 150/76
[2016-09-16] MEDS: GLIMEPIRIDE 2 MG TAB PO SCH (06:56)
[2016-09-16] MEDS: FOLIC ACID 1 MG TAB PO SCH (08:11)
[2016-09-16] MEDS: PANTOPRAZOLE 40MG TAB (PROTONIX) PO SCH (08:11)
[2016-09-16] MEDS: ATORVASTATIN 20 MG TAB PO SCH (08:12)
[2016-09-16] MEDS: hydroCHLOROthiazide 12.5 MG CAPSULE PO SCH (08:12)
[2016-09-16] MEDS: GABAPENTIN 300 MG CAP PO SCH ×3 (08:12→21:30)
[2016-09-16] MEDS: THIAMINE 100 MG TAB PO SCH (08:12)
[2016-09-16] MEDS: IRBESARTAN 150 MG TAB PO SCH (08:12)
[2016-09-16] MEDS: buPROPion 75 MG TAB PO SCH (08:12)
[2016-09-16] MEDS: MULTIVITAMINS/MINERALS THERAP 1 TAB PO SCH (08:12)
[2016-09-16 11:46] VITALS: BP 159/81
[2016-09-16 11:51] VITALS: BP 159/81
--- NOTE | 2016-09-16 15:01 | IPNPDOC ---
[facility] Progress Note Progress Note DATE OF SERVICE: 09/16/16 SUBJECTIVE: Patient is calm and cooperative with interview. Patient focused on discharge. Patient reports his children are protective factors in his life. He denies current alcohol use d/o symptoms, but is willing to take referral to an outpt. [facility]-Substance induced treatment program. Patient denies hx of suicidal behavior. He reports he is willing to wait till Saturday to discuss discharge as he is informed the hospital does not discharge over the weekend. Patient denies alcohol w/d symptoms. Patient is med compliant and denies med s/e's. Patient reports fair sleep and appetite. He denies AH/VH. No signs of psychosis reported or observed. OBJECTIVE: Vitals - see below. Labs - see below. MENTAL STATUS EXAMINATION: Patient is calm and cooperative, engaged in the interview. Fair eye contact. Speech is rapid, but not pressured. Mood is anxious. Affect is broad, frustrated. No evidence of delusions or hallucinations. Memory is fair. Patient is fully oriented. Patient is denying suicidal or homicidal ideation. TP-linear and goal directed; TC-focused on discharge. Insight and judgment are fair. ASSESSMENT: 1. Depressive d/o, unspecified. 2. Alcohol use d/o. PLAN: 1. Continue close observations. 2. Continue psychotropic meds as written. 3. Continue alcohol w/d protocol; continue vitamin supplementation. 4. Nurses order to allow patient's 17yo son exception to visit rule, but are to meet in an isolated meeting room away from the milieu in place. TIME SPENT: 30 minutes Vital Signs Vital Signs Date Time Temp Pulse Resp B/P Pulse Ox O2 Delivery O2 Flow Rate FiO2 09/16/16 11:51 96.7 88 18 159/81 09/14/16 11:26 Room Air 09/13/16 16:30 98 Laboratory Data 24H Labs Laboratory Tests 2 09/16/16 06:29: Bedside Glucose (Misc Panel) 120H Current Medications Current Medications Acetaminophen (Tylenol Tab) 650 mg Q6HP PRN PO HEADACHE or DISCOMFORT Last administered on 09/13/16t 19:59; Start 09/13/16 at 18:15; Stop 10/13/16 at 18:14 Al Hydrox/Mg Hydrox/Simethicone (Mylanta) 30 ml Q4HP PRN PO HEARTBURN/ INDIGESTION Last administered on 09/15/16 19:38; Start 09/13/16 at 18:15; Stop 10/13/16 at 18:14 Atorvastatin Calcium (Lipitor) 20 mg DAILY PO Last administered on 09/16/16 08 :12; Start 09/14/16 at 09:00; Stop 10/14/16 at 08:59 Bupropion HCl (Wellbutrin) 75 mg QAM PO Last administered on 09/16/16 08:12; Start 09/15/16 at 09:00; Stop 10/15/16 at 08:59 Folic Acid (Folic Acid) 1 mg DAILY PO Last administered on 09/16/16 08:11; Start 09/14/16 at 09:00; Stop 10/14/16 at 08:59 Gabapentin (Neurontin) 300 mg TID PO Last administered on 09/16/16 08:12; Start 09/13/16 at 21:00; Stop 10/13/16 at 20:59 Glimepiride (Amaryl) 2 mg DAILY@0730 PO Last administered on 09/16/16 06:56; Start 09/14/16 at 07:30; Stop 10/14/16 at 07:29 Home Med (Med Rec Complete!) ASDIRECTED XX ; Start 09/13/16 at 14:30; Stop at 14:30; Status DC Hydrochlorothiazide (Hydrodiuril) 12.5 mg DAILY PO Last administered on 08:12; Start 09/14/16 at 09:00; Stop 10/14/16 at 08:59 Hydroxyzine HCl (Atarax) 50 mg Q6H PRN PO ANXIETY; Start 09/14/16 at 19:30; Stop 10/14/16 at 19:29 Irbesartan (Avapro) 150 mg DAILY PO Last administered on 09/16/16 08:12; Start 09/14/16 at 09:00; Stop 10/14/16 at 08:59 Lorazepam (Ativan) 2 mg ASDIRECTED PRN PO SEE PROTOCOL; Start 09/13/16 at 18:15 ; Stop 09/20/16 at 18:14 Magnesium Hydroxide (Milk Of Magnesia) 30 ml DAILYPRN PRN PO CONSTIPATION; Start 09/13/16 at 18:15; Stop 10/13/16 at 18:14 Metformin HCl (Glucophage Xr) 2,000 mg ACS PO Last administered on 09/15/16 17 :24; Start 09/14/16 at 17:30; Stop 10/14/16 at 17:29 Multivitamins (Theragram-M) 1 tab DAILY PO Last administered on 09/16/16 08:12 ; Start 09/14/16 at 09:00; Stop 10/14/16 at 08:59 Naproxen (Naprosyn) 500 mg BIDP PRN PO PAIN; Start 09/13/16 at 18:15; Stop at 18:14 Pantoprazole Sodium (Protonix) 40 mg DAILY PO Last administered on 09/16/16 08 :11; Start 09/14/16 at 09:00; Stop 10/14/16 at 08:59 Thiamine HCl (Thiamine HCl) 100 mg BID PO Last administered on 09/16/16 08:12 ; Start 09/13/16 at 21:00; Stop 09/16/16 at 09:01; Status DC Trazodone HCl (Desyrel) 50 mg QHSP PRN PO INSOMNIA; Start 09/13/16 at 18:15; Stop 10/13/16 at 18:14 Allergies Coded Allergies: No Known Allergies (Unverified , 09/13/16) ELVIS ROOT MD Sep 16, 2016 15:00 ELVIS ROOT MD Sep 16, 2016 15:00
[2016-09-16] MEDS: metFORMIN XR 500MG TAB *GLUCOPHAGE XR PO SCH (17:01)
[2016-09-16 17:57] VITALS: BP 135/70
[2016-09-16 18:00] VITALS: BP 135/70
[2016-09-17 06:35] VITALS: BP 145/65
[2016-09-17] MEDS: GLIMEPIRIDE 2 MG TAB PO SCH (06:56)
[2016-09-17] MEDS: ATORVASTATIN 20 MG TAB PO SCH (07:57)
[2016-09-17] MEDS: hydroCHLOROthiazide 12.5 MG CAPSULE PO SCH (07:57)
[2016-09-17] MEDS: MULTIVITAMINS/MINERALS THERAP 1 TAB PO SCH (07:57)
[2016-09-17] MEDS: FOLIC ACID 1 MG TAB PO SCH (07:57)
[2016-09-17] MEDS: GABAPENTIN 300 MG CAP PO SCH ×3 (07:57→19:56)
[2016-09-17] MEDS: PANTOPRAZOLE 40MG TAB (PROTONIX) PO SCH (07:57)
[2016-09-17] MEDS: buPROPion 75 MG TAB PO SCH (07:58)
[2016-09-17] MEDS: IRBESARTAN 150 MG TAB PO SCH (07:58)
[2016-09-17] MEDS: metFORMIN XR 500MG TAB *GLUCOPHAGE XR PO SCH (17:05)
--- NOTE | 2016-09-17 17:12 | IPN ---
DATE: 09/17/2016 A 51-year-old male admitted to our unit threatening to "blow his brains out." SUBJECTIVE: "I need to get out of here. OBJECTIVE: Patient is somewhat angry and frustrated because of his involuntary hospitalization. Patient does not understand the process of evaluation and is trying to convince me that he is not suicidal and that he needs to be discharged "right away." Patient was stopped by police for DUI was issued. His blood alcohol level at arrival to our emergency department (ED) was 0.18. He continues to state that everything has been a misunderstanding and that he is no longer suicidal. "I don't know why I said what I said." Patient reports that he is doing well and wants to be discharged. When asked about a relatively coming to the unit for a meeting, he said, "Everybody's busy. Nobody can come." I tried to discuss the treatment with the patient and explain to him the process of evaluation, but he was not satisfied with my answers, since he wanted to be discharged today. MENTAL STATUS EXAMINATION: Patient is dressed in [facility]. Fair eye contact. The speech is somewhat pressured and rapid. Mood is anxious and depressed. Affect is somewhat irritable, frustrated, labile. No evidence of delusions or hallucinations. Memory is fair. Patient is fully oriented. Patient is denying suicidal or homicidal ideation but, again, is focused on discharge issues only. Insight and judgment are poor. ASSESSMENT: 1. Depression. 2. Suicidal ideation. 3. Alcohol abuse. PLAN: 1. Continue with bupropion 75 mg by mouth every morning. 2. Continue with folic acid, multivitamin, and thiamine per detoxification protocol. 3. Continue gabapentin 300 mg by mouth three times a day. 4. Continue with trazodone 50 mg as needed for insomnia.
[2016-09-17 18:00] VITALS: BP 125/70
[2016-09-17 20:10] VITALS: BP 126/82
[2016-09-18] MEDS: GLIMEPIRIDE 2 MG TAB PO SCH (06:30)
[2016-09-18 06:36] VITALS: BP 141/83
[2016-09-18] MEDS: ATORVASTATIN 20 MG TAB PO SCH (08:15)
[2016-09-18] MEDS: MULTIVITAMINS/MINERALS THERAP 1 TAB PO SCH (08:15)
[2016-09-18] MEDS: GABAPENTIN 300 MG CAP PO SCH (08:15)
[2016-09-18] MEDS: FOLIC ACID 1 MG TAB PO SCH (08:15)
[2016-09-18] MEDS: PANTOPRAZOLE 40MG TAB (PROTONIX) PO SCH (08:15)
[2016-09-18 08:16] VITALS: BP 141/83
[2016-09-18] MEDS: IRBESARTAN 150 MG TAB PO SCH (08:16)
[2016-09-18] MEDS: hydroCHLOROthiazide 12.5 MG CAPSULE PO SCH (08:16)
[2016-09-18] MEDS: buPROPion 75 MG TAB PO SCH (08:17)
[2016-09-18] MEDS ORDERED: buPROPion 75 MG TAB PO ONE (13:30)
[2016-09-18] MEDS: GABAPENTIN 100 MG CAP PO SCH ×2 (14:22→21:09)
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
[2016-09-18] MEDS: metFORMIN XR 500MG TAB *GLUCOPHAGE XR PO SCH (17:11)
[2016-09-18 18:00] VITALS: BP 137/77
[2016-09-18 21:10] VITALS: BP 134/78
[2016-09-19 06:38] VITALS: BP 131/59
[2016-09-19] MEDS: GLIMEPIRIDE 2 MG TAB PO SCH (06:46)
[2016-09-19] MEDS: PANTOPRAZOLE 40MG TAB (PROTONIX) PO SCH (08:20)
[2016-09-19] MEDS: FOLIC ACID 1 MG TAB PO SCH (08:20)
[2016-09-19] MEDS: ATORVASTATIN 20 MG TAB PO SCH (08:20)
[2016-09-19] MEDS: MULTIVITAMINS/MINERALS THERAP 1 TAB PO SCH (08:20)
[2016-09-19] MEDS: hydroCHLOROthiazide 12.5 MG CAPSULE PO SCH (08:21)
[2016-09-19] MEDS: IRBESARTAN 150 MG TAB PO SCH (08:21)
[2016-09-19] MEDS: GABAPENTIN 100 MG CAP PO SCH (08:21)
[2016-09-19] MEDS: buPROPion 75 MG TAB PO SCH (08:21)
[2016-09-19] MEDS ORDERED: BUPR75TA5 PO (12:01)
[2016-09-19] MEDS ORDERED: GABA-279 PO (12:01)
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
== END 2016-09-19 15:15 | disposition home or self-care (01) | DRG 885 ==
LOC: M ED 17:16 → M PSY 09-13 17:10
PROVIDERS: ADMIT Psychiatry & Neurology Psychiatry; ATTEND Psychiatry & Neurology Psychiatry
DX: F39 Unspecified mood [affective] disorder (principal); F10.10 Alcohol abuse, uncomplicated; K21.9 Gastro-esophageal reflux disease without esophagitis; E78.5 Hyperlipidemia, unspecified; I10 Essential (primary) hypertension; E11.9 Type 2 diabetes mellitus without complications; M79.671 Pain in right foot

== ENCOUNTER 2017-03-21 17:21 | Emergency (ER) | payer OTHER ==
[~2017-03-21 17:21] MED LIST: ATOR1TAB21 PO; BUPR75TA5 PO; GABA-279 PO; GABA-282 PO; GLIM2TA PO; IRBE150T14 PO; METF-700 PO; NAPR1TAB86 PO; PANT40TA2 PO
[2017-03-21 20:24] LABS: ALBUMIN 3.9 GM/DL (3.2-5.2); ALBUMIN/GLOBULIN RATIO 1.18 (1.00-1.93); ALKALINE PHOSPHATASE 86 U/L (45-117); ALT/SGPT 50 U/L (12-78); ANION GAP 9 MEQ/L (8-16); AST/SGOT 21 U/L (15-37); BILIRUBIN,DIRECT < 0.1 MG/DL (0.0-0.2); BILIRUBIN,TOTAL 0.2 MG/DL (0.2-1.0); BLOOD UREA NITROGEN 14 MG/DL (7-18); CARBON DIOXIDE LEVEL 30 MEQ/L (21-32); CHLORIDE LEVEL 101 MEQ/L (98-107); GLOMERULAR FILTRATION RATE > 60.0 (>56); GLUCOSE, FASTING 134 MG/DL (70-105); POTASSIUM SERUM 3.5 MEQ/L (3.5-5.1); SODIUM LEVEL 140 MEQ/L (136-145); TOTAL PROTEIN 7.2 GM/DL (6.4-8.2)
[2017-03-21 20:43] LABS: BASO % 0.5 % (0.0-1.0); EOS # 0.2 K/mm3 (0.0-0.50); EOS % 2.8 % (0.0-3.0); LARGE UNSTAINED CELL # 0.1 K/mm3 (0.0-0.4); LARGE UNSTAINED CELL % 1.8 % (0.0-4.0); LYMPH # 2.5 K/mm3 (1.5-4.5); LYMPH % 29.8 % (24.0-44.0); MEAN CORPUSCULAR HEMOGLOBIN 30.2 pg (27.0-33.0); MEAN CORPUSCULAR HGB CONC 34.5 g/dl (32.0-36.5); MEAN CORPUSCULAR VOLUME 87.5 fl (80.0-96.0); MONO # 0.5 K/mm3 (0.0-0.8); MONO % 6.1 % (0.0-5.0); NEUTROPHILS # 4.7 K/mm3 (1.8-7.7); PLATELET COUNT, AUTOMATED 245 k/mm3 (150-450); RED CELL DISTRIBUTION WIDTH 13.3 % (11.5-14.5); WHITE BLOOD COUNT 7.9 K/mm3 (4.0-10.0)
[2017-03-21 21:15] VITALS: BP 127/90
--- NOTE | 2017-03-22 14:52 | REP ---
PORTABLE CHEST, SINGLE VIEW: COMPARISON: 05/18/2005 There is no evidence of acute infiltrate. No pleural effusion is seen. The heart is normal in size. The mediastinal silhouette is unremarkable. The visualized osseous structures are intact. IMPRESSION: No acute pulmonary disease. Signed by John Novoa MD 03/22/2017 04:01 P
--- NOTE | 2017-04-05 07:46 | ECGEPIP ---
Stationary ECG Study [facility] - ED Test Date: 2017-03-21 Pat Name: ROSARIO ROCHE Department: Room: - Gender: M Marketing Project Lead: rn : 1965 Requested By: DARRYL Junior Order Number: [id number] Reading MD: Heather Mon Measurements Intervals Ronald Rate: 85 P: 50 NH: 176 QRS: 34 QRSD: 93 T: -2 QT: 323 QTc: 384 Interpretive Statements SINUS RHYTHM NSTTW ABNORMALITY ?EARLY REPOLARIZATION SIMILAR 09/14/16 CLINICAL CORRELATION Electronically Signed On 04-05-2017 7:45:46 EDT by Heather Mon
== END 2017-03-21 21:16 | disposition home or self-care (01) ==
LOC: M ED 17:21
DX: R94.31 Abnormal electrocardiogram [ECG] [EKG] (principal); E11.9 Type 2 diabetes mellitus without complications; E78.4 Other hyperlipidemia; I10 Essential (primary) hypertension; Z72.0 Tobacco use

== ENCOUNTER → 2017-03-26 | Outpatient (CLI) | payer OTHER | LOC: M OUTALCOH 09:07 | PROVIDERS: ATTEND Psychiatry & Neurology Psychiatry | DX: F10.20 Alcohol dependence, uncomplicated (principal) ==

== ENCOUNTER 2017-04-17 14:30 | Outpatient (RCR) | payer OTHER | END 2017-04-20 | LOC: M OUTALCOH 14:30 | PROVIDERS: ATTEND Psychiatry & Neurology Psychiatry | DX: F10.20 Alcohol dependence, uncomplicated (principal) ==

== ENCOUNTER 2017-06-19 15:00 | Outpatient (RCR) | payer OTHER | END 2017-06-20 | LOC: M OUTALCOH 15:00 | PROVIDERS: ATTEND Psychiatry & Neurology Psychiatry | DX: F10.20 Alcohol dependence, uncomplicated (principal) ==

== ENCOUNTER 2017-06-24 15:19 | Outpatient (RCR) | payer OTHER | END 2017-07-21 | LOC: M OUTALCOH 15:19 | DX: F10.20 Alcohol dependence, uncomplicated (principal) | CPT/HCPCS: 90834 ==

== ENCOUNTER 2017-07-31 16:00 | Outpatient (RCR) | payer OTHER | END 2017-08-21 | LOC: M OUTALCOH 08-07 16:00 | DX: F10.20 Alcohol dependence, uncomplicated (principal) | CPT/HCPCS: 90853 ==

== ENCOUNTER 2017-08-22 15:06 | Outpatient (RCR) | payer OTHER | END 2017-09-18 | LOC: M OUTALCOH 15:06 | DX: F10.20 Alcohol dependence, uncomplicated (principal) | CPT/HCPCS: 90834 ==

== ENCOUNTER 2017-09-23 11:49 | Outpatient (RCR) | payer OTHER | END 2017-10-19 | LOC: M OUTALCOH 09-25 16:00 | DX: F10.20 Alcohol dependence, uncomplicated (principal) | CPT/HCPCS: 90834 ==

== ENCOUNTER 2017-10-21 10:18 | Outpatient (RCR) | payer OTHER | END 2017-11-18 | LOC: M OUTALCOH 10-28 16:00 | DX: F10.20 Alcohol dependence, uncomplicated (principal) | CPT/HCPCS: 90834 ==

== ENCOUNTER 2017-11-25 10:59 | Emergency (ER) | payer OTHER ==
[2017-11-25 11:37] LABS: BASO # 0.1 10^3/uL (0.0-0.2); BASO % 0.8 % (0.0-1.0); EOS # 0.2 10^3/uL (0.0-0.50); EOS % 2.8 % (0.0-3.0); HEMOGLOBIN 13.6 g/dl (13.5-17.5); IMMATURE GRANULOCYTE % 0.7 % (0-3.0); LYMPH # 2.5 10^3/uL (1.5-4.5); MEAN CORPUSCULAR HEMOGLOBIN 28.9 pg (27.0-33.0); MEAN CORPUSCULAR VOLUME 85.1 fl (80.0-96.0); MONO # 0.6 10^3/uL (0.0-0.8); MONO % 10.2 % (0.0-5.0); NEUTROPHILS # 2.6 10^3/uL (1.8-7.7); NEUTROPHILS % 43.5 % (36.0-66.0); PLATELET COUNT, AUTOMATED 282 10^3/uL (150-450)
[2017-11-25] MEDS: ASPIRIN 81 MG CHEW TABLET PO (11:48)
[2017-11-25 11:50] LABS: INR 0.91; PROTHROMBIN TIME 12.4 SECONDS (12.4-14.5)
[2017-11-25 11:51] LABS: PARTIAL THROMBOPLASTIN TIME 43.1 SECONDS (26.8-37.9)
[2017-11-25 12:06] LABS: ALBUMIN/GLOBULIN RATIO 1.05 (1.00-1.93); ALKALINE PHOSPHATASE 87 U/L (45-117); ALT/SGPT 38 U/L (12-78); ANION GAP 4 MEQ/L (8-16); AST/SGOT 24 U/L (7-37); BILIRUBIN,DIRECT < 0.1 MG/DL (0.0-0.2); BILIRUBIN,TOTAL 0.4 MG/DL (0.2-1.0); BLOOD UREA NITROGEN 14 MG/DL (7-18); CALCIUM LEVEL 9.1 MG/DL (8.5-10.1); CARBON DIOXIDE LEVEL 29 MEQ/L (21-32); CHLORIDE LEVEL 106 MEQ/L (98-107); CPK CREATINE PHOSPHOKINASE 149 U/L (39-308); CREATININE FOR GFR 1.02 MG/DL (0.70-1.30); FREE T4 0.94 NG/DL (0.76-1.46); GLOMERULAR FILTRATION RATE > 60.0 (>56); GLUCOSE, FASTING 118 MG/DL (70-100); SODIUM LEVEL 139 MEQ/L (136-145); TOTAL PROTEIN 7.8 GM/DL (6.4-8.2); TROPONIN I < 0.02 NG/ML (< 0.10)
[2017-11-25 12:12] LABS: CK-MB VALUE MASS 1.4 NG/ML (<3.6); MB/CK RELATIVE INDEX 0.93 (< OR =4); THYROID STIMULATING HORMONE 0.954 uIU/ML (0.358-3.740)
[2017-11-25] MEDS ORDERED: ISOVUE-370 76% 100ML VIAL (Q9967) As Ordered (12:14)
[2017-11-25 12:39] LABS: D-DIMER QUANT < 270.0 ng/ml (<500)
== END 2017-11-25 14:18 | disposition home or self-care (01) ==
LOC: M ED 10:59
DX: R07.9 Chest pain, unspecified (principal); R91.1 Solitary pulmonary nodule; E11.9 Type 2 diabetes mellitus without complications; I10 Essential (primary) hypertension; E78.5 Hyperlipidemia, unspecified; K21.9 Gastro-esophageal reflux disease without esophagitis; F32.9 Major depressive disorder, single episode, unspecified; F41.9 Anxiety disorder, unspecified; Z79.84 Long term (current) use of oral hypoglycemic drugs; Z79.899 Other long term (current) drug therapy
CPT/HCPCS: Q9967

== ENCOUNTER 2017-12-04 15:59 | Outpatient (RCR) | payer OTHER | END 2017-12-19 | LOC: M OUTALCOH 15:59 | DX: F10.20 Alcohol dependence, uncomplicated (principal) | CPT/HCPCS: 90834 ==

== ENCOUNTER 2018-01-16 14:56 | Outpatient (RCR) | payer OTHER | END 2018-01-18 | LOC: M OUTALCOH 14:56 | DX: F10.20 Alcohol dependence, uncomplicated (principal) | CPT/HCPCS: 90834 ==

== ENCOUNTER 2018-04-03 16:00 | Outpatient (RCR) | payer OTHER | END 2018-04-20 | LOC: M OUTALCOH 16:00 | DX: F10.20 Alcohol dependence, uncomplicated (principal) | CPT/HCPCS: 90834 ==

== ENCOUNTER 2020-03-03 14:45 | Emergency (ER) | payer OTHER ==
[~2020-03-03 14:45] MED LIST changes: +ASPIRIN 81 MG CHEW TABLET As Ordered ONE; +ASPIRIN 81 MG CHEW TABLET ONE; +BUSP10TA PO; +FLOM0.4C39 PO; +GABA-1171 PO; -GABA-279 PO; -GABA-282 PO; +GABA-843 PO; -GLIM2TA PO; +GLIM2TAB29 PO; +KETO10TAB PO; -METF-700 PO; +METF-818 PO; +NITROGLYCERIN 0.4 MG SUBL TABLET As Ordered ONE; +NITROGLYCERIN 0.4 MG SUBL TABLET ONE; -PANT40TA2 PO; +PANT40TA29 PO; +ZOFR4TAB14 PO
[2020-03-03] MEDS ORDERED: GI COCKTAIL 50ML BTL(HYOSCYAMINE/MAALOX/LIDOCAINE VISCOUS)(1:3:1) As Ordered ONE (14:46)
[2020-03-03] MEDS ORDERED: GI COCKTAIL 50ML BTL(HYOSCYAMINE/MAALOX/LIDOCAINE VISCOUS)(1:3:1) ONE (14:46)
--- NOTE | 2020-04-04 15:33 | ECGEPIP ---
[facility] - ED Test Date: 2020-03-03 Pat Name: ROSARIO ROCHE Department: Room: - Gender: Male Live Out Nanny: : 1965 Requested By: TIFFANIE GARCIA Order Number: [id number] Reading MD: Heather Mon Measurements Intervals [place] Rate: 60 P: 21 RI: 158 QRS: 55 QRSD: 154 T: 28 QT: 410 QTc: 410 Interpretive Statements SINUS RHYTHM LEFT BUNDLE BRANCH BLOCK ABNORMAL ECG CLINICAL CORRELATE SEE SCANNED DOWNTIME REPORT
--- NOTE | 2020-04-06 14:38 | ECGEPIP ---
SINUS BRADYCARDIA WITH SINUS ARRHYTHMIA LEFT BUNDLE BRANCH BLOCK ABNORMAL ECG CLINICAL CORRELATE SEE SCANNED DOWNTIME REPORT. MTDD
[2020-04-18 01:57] LABS: HEMOGLOBIN 14.8 g/dl (13.5-17.5); MEAN CORPUSCULAR HEMOGLOBIN 29.1 pg (27.0-33.0); MEAN CORPUSCULAR HGB CONC 32.9 g/dl (32.0-36.5); MEAN CORPUSCULAR VOLUME 88.6 fl (80.0-96.0); PLATELET COUNT, AUTOMATED 227 10^3/uL (150-450); RED BLOOD COUNT 5.08 10^6/uL (4.30-6.10); WHITE BLOOD COUNT 8.2 10^3/uL (4.0-10.0)
[2020-04-18 02:07] LABS: INR 0.99; PROTHROMBIN TIME 13.3 SECONDS (12.5-14.3)
[2020-04-21] LABS: CK-MB VALUE MASS 1.1 NG/ML (<3.6); CPK CREATINE PHOSPHOKINASE 78 U/L (39-308); MB/CK RELATIVE INDEX 1.41 (< OR =4); TROPONIN I < 0.02 NG/ML (< 0.10)
== END 2020-03-03 18:20 | disposition home or self-care (01) ==
LOC: M ED 14:45
DX: J90 Pleural effusion, not elsewhere classified (principal); I44.7 Left bundle-branch block, unspecified; I10 Essential (primary) hypertension; E11.9 Type 2 diabetes mellitus without complications; Z95.5 Presence of coronary angioplasty implant and graft; Z79.899 Other long term (current) drug therapy; Z79.82 Long term (current) use of aspirin; Z79.84 Long term (current) use of oral hypoglycemic drugs

== ENCOUNTER 2020-08-03 11:34 | Emergency (ER) | payer OTHER ==
[~2020-08-03] VITALS: Ht 160 cm; Wt 78.8 kg
[~2020-08-03 11:34] MED LIST changes: -ASPIRIN 81 MG CHEW TABLET As Ordered ONE; -ASPIRIN 81 MG CHEW TABLET ONE; +GABA-282 PO; -GABA-843 PO; -NITROGLYCERIN 0.4 MG SUBL TABLET As Ordered ONE; -NITROGLYCERIN 0.4 MG SUBL TABLET ONE
--- OUTSIDE RECORDS SUMMARY | 2020-08-03 11:43 | CCD ---
Author Author [facility] Organization [facility] Address Unknown Phone Unavailable Care Team Providers Care Restaurant Area Director Name Role Phone Vernon Irizarry MD Unavailable Vernon Reed MD Unavailable Unavailable Vernon Irizarry MD Unavailable Unavailable Vernon Irizarry MD Unavailable Unavailable Vernon Irizarry MD Unavailable Unavailable Vernon Irizarry MD Unavailable Unavailable Vernon Irizarry MD Unavailable Unavailable Vernon Irizarry MD Unavailable Unavailable Vernon Irizarry MD Unavailable Unavailable Vernon Irizarry MD Unavailable Unavailable Vernon Irizarry MD Unavailable Unavailable Vernon Irizarry MD Unavailable Unavailable Vernon Irizarry MD Unavailable Unavailable Vernon Irizarry MD Unavailable Vernon Reed MD Unavailable Unavailable Vernon Irizarry MD Unavailable Unavailable Vernon Irizarry MD Unavailable Unavailable Vernon Irizarry MD Unavailable Unavailable Vernon Irizarry MD Unavailable Unavailable VaneenenaamVernon MD Unavailable Unavailable Vaneenenaam, Vernon Gonsalez MD Unavailable Unavailable Vaneenenaam, Vernon Gonsalez MD Unavailable Unavailable Vaneenenaam, Vernon Gonsalez MD Unavailable Unavailable Vaneenenaam, Vernon Gonsalez MD Unavailable Unavailable Vaneenenaam, Vernon Gonsalez MD Unavailable Unavailable Vaneenenaam, Vernon Gonsalez MD Unavailable Unavailable Vaneenenaam, Vernon Gonsalez MD Unavailable Unavailable Vaneenenaam, Vernon Gonsalez MD Unavailable Unavailable Vaneenenaam, Vernon Gonsalez MD Unavailable Unavailable Vaneenenaam, Vernon Gonsalez MD Unavailable Unavailable Vaneenenaam, Vernon Gonsalez MD Unavailable Unavailable Vaneenenaam, Vernon Gonsalez MD Unavailable Unavailable VaneenenaamVernon MD Unavailable Unavailable Vaneenenaam, Vernon Gonsalez MD Unavailable Unavailable Vaneenenaam, Vernon Gonsalez MD Unavailable Unavailable Vaneenenaam, Vernon Gonsalez MD Unavailable Unavailable Vaneenenaam, Vernon Gonsalez MD Unavailable Unavailable Vaneenenaam, Vernon Gonsalez MD Unavailable Unavailable Vaneenenaam, Vernon Gonsalez MD Unavailable Unavailable Vaneenenaam, Vernon Gonsalez MD Unavailable Unavailable Vaneenenaam, Vernon Gonsalez MD Unavailable Unavailable Vaneenenaam, Vernon Gonsalez MD Unavailable Unavailable Vaneenenaam, Vernon Gonsalez MD Unavailable Unavailable Vaneenenaam, Vernon Gonsalez MD Unavailable Unavailable Re-disclosure Warning The records that you are about to access may contain information from federally-assisted alcohol or drug abuse programs. If such information is present, then the following federally mandated warning applies: This information has been disclosed to you from records protected by federal confidentiality rules (42 CFR part 2). The federal rules prohibit you from making any further disclosure of this information unless further disclosure is expressly permitted by the written consent of the person to whom it pertains or as otherwise permitted by 42 CFR part 2. A general authorization for the release of medical or other information is NOT sufficient for this purpose. The Federal rules restrict any use of the information to criminally investigate or prosecute any alcohol or drug abuse patient.The records that you are about to access may contain highly sensitive health information, the redisclosure of which is protected by Article 27-F of the [facility] Public Health law. If you continue you may have access to information: Regarding HIV / AIDS; Provided by facilities licensed or operated by the [facility] Office of Mental Health; or Provided by the [facility] Office for People With Developmental Disabilities. If such information is present, then the following [facility] mandated warning applies: This information has been disclosed to you from confidential records which are protected by state law. State law prohibits you from making any further disclosure of this information without the specific written consent of the person to whom it pertains, or as otherwise permitted by law. Any unauthorized further disclosure in violation of state law may result in a fine or senior care sentence or both. A general authorization for the release of medical or other information is NOT sufficient authorization for further disc losure. Family History Family Member Name Family Member Gender Family Member Status Date o f Status Description Data Source(s) Unknown Male Problem [facility] ([facility]) Encounters Encounter Providers Location Date Indications Data Source(s ) Outpatient Attender: Vernon Irizarry MD Physical Therap y 05/13/2020 01:00:00 PM EDT [facility] ([facility]) Outpatient Attender: Vernon Irizarry MD Physical Therap y 06/29/2019 01:00:00 PM EST [facility] ([facility]) Medications Medication Brand Name Start Date Product Form Dose Route Admi nistrative Instructions Pharmacy Instructions Status Indications Reaction Description Data Source(s) meloxicam 7.5 MG Oral Tablet [Mobic] Mobic 05/13/2020 12:00:00 AM EDT ORAL active [facility] ([facility]) 2 ML Sodium Hyaluronate 10 MG/ML Prefilled Syringe [Euflexxa ] Euflexxa 08/14/2019 12:00:00 AM EST active [facility] ([facility]) Insurance Providers Payer name Policy type / Coverage type Policy ID Covered green party ID Covered green party's relationship to kumar Policy Kumar Plan Information 'S ADMINISTRATION [id number] SP [id number] [facility] [id number] SP [id number] Travelers ) Workers Compensation [id number] Self [id number] [facility] () Workers Compensation [id number] Self [id number] [employer] [id number] [place] [id number] [employer] [id number] [place] [id number] [employer] [id number] [employer] [id number] [employer] (HMO) Fa katerina Dependent [employer] Family Dependent [employer] [id number] [place] [id number] Surgeries/Procedures Procedure Description Date Indications Data Source(s) ARTHROCENTESIS ASPIR&/INJECTION MAJOR JT/BURSA 020 12:00:00 AM EST [facility] ([facility] ARTHROCENTESIS ASPIR&/INJECTION MAJOR JT/BURSA 020 12:00:00 AM EST [facility] ([facility] )
--- OUTSIDE RECORDS SUMMARY | 2020-08-03 11:43 | CCD | Continuity of Care Document ---
Author Author Stan BRIGGS MD Organization Unknown Address [address] [place] [address], [facility] [address] [place] [address] Phone [phone] Care Team Providers Care Java Scala Developer Name Role Phone Efren Bey MD AUTM [phone] Problems Active Problems Provider Date Essential hypertension Mary Briggs MD Onset: 09/08 Pure hypercholesterolemia Mary Briggs MD Onset: Social History Type Date Description Comments Sex Unknown ETOH Use Occasionally consumes alcohol Tobacco Use Start: Unknown Denies Smoking Smoking Status Reviewed: 05/13/20 Denies Smoking Allergies, Adverse Reactions, Alerts Description No Known Drug Allergies Medications Active Medications SIG Qnty Indications Ordering Provide r Date Mobic 7.5mg Tablets 1 by mouth after meals once a day workers comp 30tabs M17.32 Mary Briggs MD 05/13/2020 Euflexxa 20mg/2ML Soln Prefill Syr alex lt knee 08/14/2019 dpv/le left knee #2 08/21/2019 dpv/ag left knee #3 09/10/19 dpv/dga Mary Briggs MD 020 Metformin HCL 500mg Tablets take one tablet by mouth twice a day Unknown Gabapentin 300mg Capsules 1 tab po qhs for one week, then one tab po bid for one week then one tab po tid Unknown Immunizations Description No Information Available Vital Signs Date Vital Result Comment 09/08/2018 9:50am Body Temperature 97.8 F Height 63.5 inches 5'3.50" Weight 166.00 lb BMI (Body Mass Index) 28.9 kg/m2 Results Description No Information Available Procedures Description No Information Available Medical Devices Description No Information Available Encounters Type Date Location Provider Dx Diagnosis Office Visit 05/13/2020 1:00p [place] Mary Briggs MD M1 7.32 Unilateral post-traumatic osteoarthritis, left knee Assessments Date Code Description Provider 05/13/2020 M17.32 Unilateral post-traumatic osteoa rthritis, left knee Mary Briggs MD Plan of Treatment 05/13/2020 - Mary Briggs MD* M17.32 Unilateral post-traumatic osteoarthritis, left knee* New Medication:* Mobic 7.5 mg - 1 by mouth after meals once a day workers comp * New Orders:* Euflexxa LT Knee Injection, Ordered: 05/13/20 * Follow up:* f/u with a PA with approval for euflexxa left knee Functional Status Description No Information Available Mental Status Description No Information Available Referrals Description No Information Available
--- OUTSIDE RECORDS SUMMARY | 2020-08-03 11:43 | CCD | Continuity of Care Document ---
Author Author Stan BRIGGS MD Organization Unknown Address [address] [place] [address], [facility] [address] [place] [address] Phone [phone] Care Team Providers Care Financial Intern Name Role Phone Efren Bey MD AUTM [phone] Problems Active Problems Provider Date Essential hypertension [...] Medical Devices Description No Information Available Encounters Description No Information Available Assessments Date Code Description Provider 05/13/2020 M17.32 [...]
[2020-08-03 12:08] LABS: BASO # 0.1 10^3/uL (0.0-0.2); EOS # 0.2 10^3/uL (0.0-0.5); EOS % 2.1 % (0.0-3.0); HEMATOCRIT 45.1 % (42.0-52.0); HEMOGLOBIN 14.5 g/dl (13.5-17.5); LYMPH # 3.1 10^3/uL (1.5-5.0); LYMPH % 38.2 % (24.0-44.0); MEAN CORPUSCULAR HEMOGLOBIN 28.7 pg (27.0-33.0); MEAN CORPUSCULAR HGB CONC 32.2 g/dl (32.0-36.5); MEAN CORPUSCULAR VOLUME 89.1 fl (80.0-96.0); MONO # 0.7 10^3/uL (0.0-0.8); MONO % 8.1 % (0.0-5.0); NEUTROPHILS % 50.1 % (36.0-66.0); PLATELET COUNT, AUTOMATED 258 10^3/uL (150-450); RED BLOOD COUNT 5.06 10^6/uL (4.30-6.10)
--- NOTE | 2020-08-03 12:22 | REP ---
INDICATION: CHEST PAIN. COMPARISON: 03/03/2020. TECHNIQUE: SINGLE PORTABLE AP VIEW OF THE CHEST WAS PERFORMED. FINDINGS: THERE IS NO ACUTE INFILTRATE OR PULMONARY EDEMA. LUNGS ARE CLEAR. HEART IS NOT SIGNIFICANTLY ENLARGED. MEDIASTINAL SILHOUETTE IS UNREMARKABLE. THE VISUALIZED OSSEOUS STRUCTURES ARE INTACT. IMPRESSION: NO ACUTE PULMONARY DISEASE. <Electronically signed by John Novoa > 08/03/20 [id number]
[2020-08-03] MEDS ORDERED: GI COCKTAIL 50ML BTL(HYOSCYAMINE/MAALOX/LIDOCAINE VISCOUS)(1:3:1) PO ONE (12:30)
[2020-08-03 12:36] LABS: ALBUMIN 4.1 GM/DL (3.2-5.2); ALT/SGPT 58 U/L (12-78); BILIRUBIN,DIRECT 0.1 MG/DL (0.0-0.2); BILIRUBIN,TOTAL 0.5 MG/DL (0.2-1.0); BLOOD UREA NITROGEN 23 MG/DL (7-18); CARBON DIOXIDE LEVEL 28 MEQ/L (21-32); CHLORIDE LEVEL 105 MEQ/L (98-107); CK-MB VALUE MASS 1.7 NG/ML (<3.6); CPK CREATINE PHOSPHOKINASE 115 U/L (39-308); CREATININE FOR GFR 1.12 MG/DL (0.70-1.30); GLOMERULAR FILTRATION RATE > 60.0 (>56); GLUCOSE, FASTING 137 MG/DL (70-100); LIPASE 102 U/L (73-393); MB/CK RELATIVE INDEX 1.48 (< OR =4); POTASSIUM SERUM 4.5 MEQ/L (3.5-5.1); SODIUM LEVEL 137 MEQ/L (136-145); TOTAL PROTEIN 7.4 GM/DL (6.4-8.2); TROPONIN I < 0.02 NG/ML (< 0.10)
--- OUTSIDE RECORDS SUMMARY | 2020-08-03 12:38 | CCD ---
Author Author [facility] Organization [facility] Address Unknown Phone Unavailable Care Team Providers Care Pediatric Intensive Physician Name Role Phone Vernon Irizarry MD Unavailable Unavailable Vernon Irizarry [...] by Article 27-F of the [facility] Public Health law. If you continue you may have access to information: Regarding HIV / AIDS; Provided by facilities licensed or operated by the [facility] Office of Mental Health; or Provided by the [facility] Office for People With Developmental Disabilities. If such information is present, then the following [facility] mandated warning applies: This information has [...] law may result in a fine or fci sentence or both. A general authorization for the release of medical or other information is NOT sufficient authorization for further disc losure. Family History Family Member Name Family Member Gender Family Member Status Date o f Status Description Data Source(s) Unknown Male Problem [facility] ([facility]) Encounters Encounter Providers Location Date Indications Data Source(s ) Outpatient Attender: Vernon Irizarry MD Physical Therap y 05/13/2020 01:00:00 PM EDT [facility] ([facility]) Outpatient Attender: Vernon Irizarry MD Physical Therap y 06/29/2019 01:00:00 PM EST [facility] ([facility]) Medications Medication Brand Name Start Date Product Form Dose Route Admi nistrative Instructions Pharmacy Instructions Status Indications Reaction Description Data Source(s) meloxicam 7.5 MG Oral Tablet [Mobic] Mobic 05/13/2020 12:00:00 AM EDT ORAL active [facility] ([facility]) 2 ML Sodium Hyaluronate 10 MG/ML Prefilled Syringe [Euflexxa ] Euflexxa 08/14/2019 12:00:00 AM EST active [facility] ([facility]) Insurance Providers Payer name Policy type / Coverage type Policy ID Covered republican ID Covered republican's relationship to kumar Policy Kumar Plan Information 'S ADMINISTRATION [id number] SP [id number] [facility] [id number] SP [id number] Travel[employer] ) Workers Compensation [id number] Self [id number] [facility] () Workers Compensation [id number] Self [id number] [employer] [id number] [place] [id number] [employer] [id number] [place] [id number] [employer] [id number] [employer] [id number] [employer] (HMO) Fa katerina Dependent [employer] Family Dependent [employer] [id number] [facility] [id number] Surgeries/Procedures Procedure Description Date Indications Data Source(s) ARTHROCENTESIS ASPIR&/INJECTION MAJOR JT/BURSA 020 12:00:00 AM EST [facility] ([facility] ) ARTHROCENTESIS ASPIR&/INJECTION MAJOR JT/BURSA 020 12:00:00 AM EST [facility] ([facility] )
[2020-08-03 16:33] LABS: CK-MB VALUE MASS 1.9 NG/ML (<3.6); CPK CREATINE PHOSPHOKINASE 126 U/L (39-308); MB/CK RELATIVE INDEX 1.51 (< OR =4); TROPONIN I < 0.02 NG/ML (< 0.10)
[2020-08-03] MEDS ORDERED: SUCR1TA PO (17:00)
[2020-08-03 17:17] VITALS: BP 129/64
--- NOTE | 2020-08-04 00:41 | ECGEPIP ---
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
--- NOTE | 2020-08-04 00:47 | ECGEPIP ---
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
== END 2020-08-03 17:30 | disposition home or self-care (01) ==
LOC: M ED 11:34
DX: R07.9 Chest pain, unspecified (principal); I44.7 Left bundle-branch block, unspecified; I11.9 Hypertensive heart disease without heart failure; E11.9 Type 2 diabetes mellitus without complications; Z95.5 Presence of coronary angioplasty implant and graft

== ENCOUNTER → 2020-11-22 | Outpatient (CLI) | payer OTHER ==
[~2020-11-22] MED LIST changes: +GASTROGRAFIN SOLUTION 30ML (Q9963) As Ordered ONE; +ISOVUE-370 76% 100ML VIAL As Ordered ONE; +SUCR1TA PO
--- NOTE | 2020-11-23 07:33 | REP ---
INDICATION: gen abd pain. COMPARISON: 10/28/2017 TECHNIQUE: Axial contrast-enhanced images from the lung bases to the pubic symphysis using 100 cc Isovue 370 intravenous contrast material. Precontrast images of the abdomen along with coronal and sagittal reformations obtained. This CT examination was performed using the following dose reduction techniques: Automated exposure control, adjustment of mA and/or kv according to the patient's size, and the use of iterative reconstruction technique. FINDINGS: Lung bases are clear. Visualized heart and pericardium are normal. Liver demonstrates mild fatty infiltration without focal hepatic lesion. Spleen, pancreas, gallbladder, bilateral adrenal glands and kidneys are normal. The enteric system including stomach, small, and large bowel appears normal. No evidence for obstruction or acute inflammatory process. Normal terminal ileum and appendix are identified in the right lower quadrant. Scattered sigmoid diverticula noted without acute diverticulitis. Pelvis demonstrates normal bladder and age-appropriate prostate/seminal vesicles. Small early fat containing left inguinal hernia suggested. No ascites. No free air. No intraperitoneal or retroperitoneal adenopathy. Abdominal aorta and vasculature appear normal. Musculoskeletal structures are intact and without acute osseous abnormality. IMPRESSION: No acute abdominopelvic pathology appreciated. Mild hepatosteatosis. <Electronically signed by Brayan Fam > 11/23/20 [id number]
== END ==
LOC: M RAD 15:16
PROVIDERS: ATTEND Physician Assistant Medical
DX: R10.84 Generalized abdominal pain (principal)
CPT/HCPCS: 74178; Q9963; Q9967

== ENCOUNTER → 2021-03-09 | Outpatient (CLI) | payer OTHER ==
[~2021-03-09] MED LIST changes: -GASTROGRAFIN SOLUTION 30ML (Q9963) As Ordered ONE; -ISOVUE-370 76% 100ML VIAL As Ordered ONE
--- NOTE | 2021-03-19 17:33 | SLEEPCENT ---
DATE: 03/09/2021 ORDERED BY: MATTHEW BOOKER Nocturnal polysomnography was performed for evaluation of sleep physiology. Seven hours and 13 minutes of data were reviewed. There were 395 minutes of sleep identified. Sleep latency was short with sleep occurring at the time of initiation of testing. REM latency was normal at 75.5 minutes. Sleep architecture showed some fragmentation. There were four REM cycles noted. Overall sleep efficiency was 92.4%. The electrocardiogram showed a sinus rhythm with an average heart rate of 65 beats per minute. EEG showed mild coarsening in background but otherwise normal waveforms for wake and sleep. There were 250 respiratory events identified of 10 seconds in duration or greater for an apnea-hypopnea index of 38. The events were more frequently obstructive. However, 98 mixed and central apneas were also seen. Respiratory events were not exclusive to sleep stage. They were more frequent but not exclusive to the supine posture. Arousals from respiratory events occurred 7.3 times per hour and oxygen desaturations were seen into the 80s with some mild limb activity. Limb movement arousal index was only 3.8. 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 RECOMMENDATION: The patient should be encouraged to return to [facility] for [facility]. In the interim, alcohol and sedative avoidance should be practiced and caution exercised during the operation of motor vehicles. Given the frequency of central events a bilevel device and backup rate may be necessary for optimal sleep.
== END ==
LOC: M SLEEP 20:00
PROVIDERS: ATTEND Physician Assistant Medical
DX: G47.33 Obstructive sleep apnea (adult) (pediatric) (principal); G47.31 Primary central sleep apnea; R06.83 Snoring; F43.10 Post-traumatic stress disorder, unspecified

== ENCOUNTER 2022-06-15 09:26 | Emergency (ER) | payer OTHER ==
[~2022-06-15] VITALS: Ht 160 cm; Wt 70.5 kg
[2022-06-15] MEDS ORDERED: ATEN25TA PO (09:34)
[2022-06-15] MEDS ORDERED: ACETAMINOPHEN 500 MG TAB PO ONE (11:35)
[2022-06-15] MEDS ORDERED: COMBIVENT RESPIMAT 100-20MCG INHALER 4GM INH STA (11:35)
[2022-06-15] MEDS ORDERED: COMBAER6 INH (12:40)
[2022-06-15 12:49] VITALS: BP 111/65
[2022-06-15] MEDS ORDERED: PRED20TA PO (13:00)
== END 2022-06-15 13:06 | disposition home or self-care (01) ==
LOC: M ED 09:26
DX: J09.X9 Influenza due to identified novel influenza A virus with other manifestations (principal); E11.9 Type 2 diabetes mellitus without complications; I10 Essential (primary) hypertension; E78.5 Hyperlipidemia, unspecified; K21.9 Gastro-esophageal reflux disease without esophagitis; Z87.442 Personal history of urinary calculi; Z79.84 Long term (current) use of oral hypoglycemic drugs; Z79.899 Other long term (current) drug therapy

== ENCOUNTER → 2023-03-29 | Outpatient (CLI) | payer OTHER ==
[~2023-03-29] MED LIST changes: +ATEN25TA PO; +ATOR80TA59 PO; +BAYE81TA10 PO; +BUPR150T12 PO; +COMBAER6 INH; +FAMO40TA3 PO; +LANS30CA PO; +LISI40TA4 PO; +METF500T13 PO; +PRED20TA PO; +PROHANCE 279.3MG/ML 15ML VIAL As Ordered ONE; +PROHANCE 279.3MG/ML 5ML VIAL As Ordered ONE; +TRAZ-252 PO
== END ==
LOC: M RAD 13:55
PROVIDERS: ATTEND Physician Assistant Medical
DX: K55.059 Acute (reversible) ischemia of intestine, part and extent unspecified (principal)
CPT/HCPCS: A9576; C8902

== ENCOUNTER → 2023-04-03 | Day surgery (SDC) | payer OTHER ==
[~2023-04-03] VITALS: Ht 162.6 cm; Wt 73.7 kg
[~2023-04-03] MED LIST changes: +LIDOCAINE 2% 100MG/5ML SDV (FOR ANES.) As Ordered ONE; +NS 1,000 ML IV ONE; +ONDANSETRON 4MG 2ML VIAL As Ordered ONE; -PROHANCE 279.3MG/ML 15ML VIAL As Ordered ONE; -PROHANCE 279.3MG/ML 5ML VIAL As Ordered ONE; +fentaNYL 100 MCG/2 ML INJECTION As Ordered ONE; +propofoL 200 MG/20 ML VIAL As Ordered ONE
[2023-04-03 15:04] VITALS: BP 112/71; TEMP 96.3; O2SAT 96
== END | disposition home or self-care (01) ==
LOC: M OPP 12:09
PROVIDERS: ATTEND Internal Medicine Gastroenterology
DX: K31.A19 Gastric intestinal metaplasia without dysplasia, unspecified site (principal); R12 Heartburn; I10 Essential (primary) hypertension; E78.5 Hyperlipidemia, unspecified; R01.1 Cardiac murmur, unspecified; E11.9 Type 2 diabetes mellitus without complications; K21.9 Gastro-esophageal reflux disease without esophagitis; F41.9 Anxiety disorder, unspecified; F32.A Depression, unspecified; G47.30 Sleep apnea, unspecified; Z79.82 Long term (current) use of aspirin; Z79.84 Long term (current) use of oral hypoglycemic drugs; Z79.899 Other long term (current) drug therapy
CPT/HCPCS: 43239; 88305; J2405; J3010

== ENCOUNTER 2024-01-14 09:51 | Emergency (ER) | payer OTHER ==
[~2024-01-14] VITALS: Ht 160 cm; Wt 72.5 kg
[~2024-01-14 09:51] MED LIST changes: -LIDOCAINE 2% 100MG/5ML SDV (FOR ANES.) As Ordered ONE; -NS 1,000 ML IV ONE; -ONDANSETRON 4MG 2ML VIAL As Ordered ONE; -fentaNYL 100 MCG/2 ML INJECTION As Ordered ONE; -propofoL 200 MG/20 ML VIAL As Ordered ONE
[2024-01-14 12:01] VITALS: BP 160/83; TEMP 98.2; O2SAT 99
[2024-01-14] MEDS: methocarbamoL 750 MG TAB PO ONE (15:08)
[2024-01-14] MEDS: ACETAMINOPHEN TAB 650MG DOSE (2X325MG) PO ONE (15:08)
[2024-01-14] MEDS: KETOROLAC 30 MG/ML 1ML VIAL IM ONE (15:11)
[2024-01-14] MEDS ORDERED: METH-1165 PO (16:00)
[2024-01-14] MEDS ORDERED: KETO10TAB PO (16:00)
== END 2024-01-14 16:13 | disposition home or self-care (01) ==
LOC: M ED 09:51
DX: M54.42 Lumbago with sciatica, left side (principal); M51.36 Other intervertebral disc degeneration, lumbar region; M62.830 Muscle spasm of back; K21.9 Gastro-esophageal reflux disease without esophagitis; Z79.1 Long term (current) use of non-steroidal anti-inflammatories (NSAID); Z79.84 Long term (current) use of oral hypoglycemic drugs; Z79.899 Other long term (current) drug therapy
CPT/HCPCS: 72110; 96372; 99283; J1885

== ENCOUNTER → 2024-02-12 | Outpatient (CLI) | payer OTHER ==
[~2024-02-12] MED LIST changes: +METH-1165 PO
== END ==
LOC: M RAD 12:52
PROVIDERS: ATTEND Physician Assistant Medical
DX: M54.50 Low back pain, unspecified (principal); I65.29 Occlusion and stenosis of unspecified carotid artery